=== PATIENT | male | born 1955 | race Caucasian/White ===

== ENCOUNTER 2023-05-16 12:50 | Emergency (ER) | payer OTHER, SELFPAY ==
[2023-05-16 12:55] VITALS: BP 141/90
[2023-05-16 13:14] LABS: % Basophils 0.4 % (0-2); % Eosinophils 0.7 % (0-6); % Immature Granulocytes 0.7 % (0-0.5); % Lymphocytes 6.9 % (20.5-51.1); % Monocytes 9.5 % (1.7-9.3); % Neutrophils 81.8 % (42.2-75.2); Absolute Lymphocytes 0.2 10^3/uL (1.2-3.4); Absolute Monocytes 0.3 10^3/uL (0.1-0.6); Absolute Neutrophils 2.3 10^3/uL (1.4-6.5); Hematocrit 34.6 % (39.0-52.0); Hemoglobin 12.2 g/dL (13.0-18.0); Mean Corp Hgb Conc. 35.3 g/dL (33.0-37.0); Mean Corpuscular Volume 90.8 fL (80.0-94.0); Mean Platelet Volume 8.2 fL (7.4-10.4); Nucleated Red Blood Cells % 0 % (-); Platelet Count 111 10^3/uL (130-400); Red Blood Cell Count 3.81 10^6/uL (4.70-6.10); Red Cell Dist. Width 12.8 % (11.5-14.5); White Blood Cell Count 2.8 10^3/uL (4.8-10.8)
[2023-05-16 13:23] LABS: INR 1.14; PT 14.4 Sec (11.4-14.6)
[2023-05-16 13:31] LABS: ALT (SGPT) < 10 U/L (0-50); AST (SGOT) 20 U/L (17-59); Albumin 3.7 g/dl (3.5-5.0); Alkaline Phosphatase 48 U/L (38-126); Blood Urea Nitrogen 26 mg/dl (9-20); Carbon Dioxide 28 mmol/L (22-30); Chloride 94 mmol/L (98-107); Glucose 119 mg/dl (70-99); Potassium 4.3 mmol/L (3.5-5.1); Sodium 127 mmol/L (135-145); Total Bilirubin 1.6 mg/dl (0.2-1.3); Total Protein 6.4 g/dl (6.3-8.2); Uric Acid 6.7 mg/dl (3.5-8.5); eGFR 54.75
--- NOTE | 2023-05-16 14:16 | ED.GENMED ---
History of Present Illness
<Prisca Brunson PA-C - Last Filed: 05/17/23 13:19>
General
Chief Complaint: Musculo-Skeletal Complaint
Source: patient
Exam Limitations: none
Time Seen by Provider: 05/16/23 14:00
Nursing documentation reviewed up to this point in time: agreed with
Travel History
Have you had any contact with someone who has COVID-19?: No
Do you have any symptoms of coronavirus? Fever > 100 degrees, chills, cough, shortness of breath, sore throat, loss of taste or smell, muscle aches, or headache?: No
History of Present Illness
History of Present Illness:
Patient is a 68-year-old male currently undergoing treatment for throat cancer presenting for evaluation of atraumatic right ankle pain and swelling. Patient initially noticed symptoms on Wednesday morning with some pain that gradually worsened
throughout the day. Starting yesterday he noticed worsening pain, swelling, redness of right ankle. He states the pain is very severe and he is essentially unable to bear weight. He denies any trauma, recent surgery, open wounds. He denies any
fever, chest pain, shortness of breath.
Of note�patient did have a very similar episode last week on 05/10/23 in the same ankle. He reports that this is 'exactly the same 'he was seen at his cancer center where they performed an ultrasound and x-ray of right foot without any abnormal
findings. They treated him with 3 days of prednisone 50 mg for suspected gout with very quick improvement in symptoms. Starting on Wednesday he started his scheduled steroid infusion through . He then noticed that the symptoms returned on
Wednesday morning.
Patient denies any history of IV drug use. He is not on any blood thinners.
He will be back in his cancer center this week for routine labwork and treatment
Phy Exam
<Prisca Brunson PA-C - Last Filed: 05/17/23 13:19>
Physical Exam
Physical Exam:
General: Well appearing and non-toxic
Vitals: Mildly hypertensive, otherwise vital signs stable, afebrile
HEENT: protecting airway
Neck: appears supple, no JVD, no meningismus
CV: RRR, heart sounds normal, no evidence of cyanosis
Resp: No evidence of respiratory distress, lungs clear
Abd: Non-distended
Extremities: Significant edema and tenderness of right ankle worse at lateral malleolus, mild warmth noted; DP pulse palpable and equal bilaterally; no evidence of open wound, no red streaking noted
Neuro: alert and oriented x 3; grossly intact
Psych: Normal affect
Skin: Intact, erythema and edema of right ankle as described above
Course
<Prisca Brunson PA-C - Last Filed: 05/17/23 13:19>
Orders/Labs/Results
Orders:
Orders
05/16/23 12:58
CR Ankle - Right Min 3 Views * Urgent
Comment:
Reason For Exam: pain/swelling/redness
Foot, Right 3 View [CR Foot - Right Min 3 Views] Urgent
Comment:
Reason For Exam: pain/swelling/redness
05/16/23 13:03
C-Reactive Protein Urgent
Comment: add-on
CMP [Comprehensive Metabolic Panel] Urgent
Complete Blood Count/With Diff Urgent
Erythrocyte Sed Rate Urgent
Comment: add-on
Prothrombin Time Urgent
Uric Acid Urgent
05/16/23 14:25
Add On- LAB Urgent
Tests Added?: ESR, CRP
05/16/23 14:33
0.9% Sodium Chloride 1000 ml [Nss] 1,000 ml IV BOLUS
05/16/23 14:47
Prednisone [Deltasone] 50 mg PO NOW STA
Abnormal Lab Results
05/16/23
13:03
WBC 2.8 L 10^3/uL
(4.8-10.8)
RBC 3.81 L 10^6/uL
(4.70-6.10)
Hgb 12.2 L g/dL
(13.0-18.0)
Hct 34.6 L %
(39.0-52.0)
MCH 32.0 H pg
(27.0-31.0)
Plt Count 111 L 10^3/uL
(130-400)
Absolute Lymphs (auto) 0.2 L 10^3/uL
(1.2-3.4)
Immature Gran % 0.7 H %
(0-0.5)
Neutrophils % 81.8 H %
(42.2-75.2)
Lymphocytes % 6.9 L %
(20.5-51.1)
Monocytes % 9.5 H %
(1.7-9.3)
ESR 27 H mm/hour
(0-20)
Sodium 127 L mmol/L
(135-145)
Chloride 94 L mmol/L
(98-107)
BUN 26 H mg/dl
(9-20)
Creatinine 1.4 H mg/dL
(0.7-1.3)
Glucose 119 H mg/dl
(70-99)
Total Bilirubin 1.6 H mg/dl
(0.2-1.3)
C-Reactive Protein 28.10 H mg/L
(0.0-10.00)
05/16/23 13:03
05/16/23 13:03
Vital Signs
Initial and Last Documented VS:
Initial Vital Signs
Temp Pulse Resp BP Pulse Ox
98.3 F 68 17 141/90 99
05/16/23 12:55 05/16/23 12:55 05/16/23 12:55 05/16/23 12:55 05/16/23 12:55
Last Documented Vital Signs
Temp Pulse Resp BP Pulse Ox
98.3 F 73 17 140/95 97
05/16/23 12:55 05/16/23 17:18 05/16/23 12:55 05/16/23 17:18 05/16/23 17:18
<Veronica Deshpande MD - Last Filed: 05/16/23 15:03>
Orders/Labs/Results
Orders:
Orders
05/16/23 12:58
CR Ankle - Right Min 3 Views * Urgent
Comment:
Reason For Exam: pain/swelling/redness
Foot, Right 3 View [CR Foot - Right Min 3 Views] Urgent
Comment:
Reason For Exam: pain/swelling/redness
05/16/23 13:03
C-Reactive Protein Urgent
Comment: add-on
CMP [Comprehensive Metabolic Panel] Urgent
Complete Blood Count/With Diff Urgent
Erythrocyte Sed Rate Urgent
Comment: add-on
Prothrombin Time Urgent
Uric Acid Urgent
05/16/23 14:25
Add On- LAB Urgent
Tests Added?: ESR, CRP
05/16/23 14:33
0.9% Sodium Chloride 1000 ml [Nss] 1,000 ml IV BOLUS
05/16/23 14:47
Prednisone [Deltasone] 50 mg PO NOW STA
Abnormal Lab Results
05/16/23
13:03
WBC 2.8 L 10^3/uL
(4.8-10.8)
RBC 3.81 L 10^6/uL
(4.70-6.10)
Hgb 12.2 L g/dL
(13.0-18.0)
Hct 34.6 L %
(39.0-52.0)
MCH 32.0 H pg
(27.0-31.0)
Plt Count 111 L 10^3/uL
(130-400)
Absolute Lymphs (auto) 0.2 L 10^3/uL
(1.2-3.4)
Immature Gran % 0.7 H %
(0-0.5)
Neutrophils % 81.8 H %
(42.2-75.2)
Lymphocytes % 6.9 L %
(20.5-51.1)
Monocytes % 9.5 H %
(1.7-9.3)
ESR 27 H mm/hour
(0-20)
Sodium 127 L mmol/L
(135-145)
Chloride 94 L mmol/L
(98-107)
BUN 26 H mg/dl
(9-20)
Creatinine 1.4 H mg/dL
(0.7-1.3)
Glucose 119 H mg/dl
(70-99)
Total Bilirubin 1.6 H mg/dl
(0.2-1.3)
C-Reactive Protein 28.10 H mg/L
(0.0-10.00)
05/16/23 13:03
05/16/23 13:03
Vital Signs
Initial and Last Documented VS:
Initial Vital Signs
Temp Pulse Resp BP Pulse Ox
98.3 F 68 17 141/90 99
05/16/23 12:55 05/16/23 12:55 05/16/23 12:55 05/16/23 12:55 05/16/23 12:55
Last Documented Vital Signs
Temp Pulse Resp BP Pulse Ox
98.3 F 73 17 140/95 97
05/16/23 12:55 05/16/23 17:18 05/16/23 12:55 05/16/23 17:18 05/16/23 17:18
<Prisca Brunson PA-C - Last Filed: 05/17/23 13:19>
MDM/Problems Addressed
Differential Diagnosis Includes:
gouty arthritis, pseudogout, septic arthritis, sprain, fracture, doubt DVT
MDM/Problems Addressed:
Patient is a 68 year old male currently undergoing treatment for throat cancer presenting for evaluation of acute onset atraumatic pain and swelling of right ankle. No fever or chills. No recent wound on right lower leg or infections. Patient with
same symptoms in ankle last wednesday which was treated with steroids for suspected gout with very quick improvement. Physical exam as documented above. Patient is in no apparent distress, he is afebrile. Labs significant for leukopenia of 2.8 which
reflects a mild decline from lab work performed about one week ago. CMP shows evidence of mild renal insufficiency with hyponatremia of 127- patient is asymptomatic at this time. Will give IVF. ESR and CRP are elevated which would be expected in an
inflammatory or infectious process.
Given that patient is very immunocompromised due to cancer treatment with current white count of 2.8-there is significant concern for introducing bacteria into sterile joint space. Discussed at length with patient and patient's family. Only way to
competently rule out septic joint is with fluid analysis. They report that this is exact same symptoms that were present last week that immediately resolved with steroids which would further point to inflammatory/gout process over septic joint.
Patients does report that his uric acid level was found to be elevated at that time. And although not diagnostic- does further point to gout/inflammatory process. Given that patient is afebrile with history of recent previous flare- will plan
to treat with steroids with very strict return precautions. They will be seeing their oncologist tomorrow and will make sure that symptoms are improving.
Patient and patients feel comfortable with discarge with current plan. They will have labs checked in a few days, as scheduled, and ensure sodium levels have increased.
Chronic conditions affecting care:
Throat cancer currently undergoing treatment, history of gout
Acute Exacerbation and/or Progression of Chronic Illness:
N/A
<Prisca Brunson PA-C - Last Filed: 05/17/23 13:19>
*Radiology
Radiology exam reviewed: preliminary read by ED provider and radiology read reviewed
*Pulse Oximetry
Patient hypoxic: no
*EKG
Interpreted by ED Provider?: NA
*Extra Gang Supervisor Interpretation
Rate: Extra Gang Supervisor- N/A
*Critical Care Note
Total Time (30-74mins, 75-104mins- exclusive of procedures): Not Applicable
Data Reviewed
Review of Other/Old Records Reveals: Labs and Records
Source: patient
Further Testing Considered But Not Given:
Seriously considered arthrocentesis of right ankle for fluid analysis to rule out septic joint.
ED Attending Note
<Prisca Brunson PA-C - Last Filed: 05/17/23 13:19>
-
Portions of this chart may have been created with voice recognition software.� Occasional wrong word or��sound alike� substitutions may have occurred due to the inherent limitations of voice recognition software.
<Veronica Deshpande MD - Last Filed: 05/16/23 15:03>
ED Attending Note
Patient seen and examined by attending physician: Yes
I performed the substantive portion of visit, reviewed & personally made and approve the management plan that is documented in note by myself or BECKY.: Yes
ED Attending Note:
68 yr old male with c/o R lateral ankle swelling redness warmth since Wednesday. Difficult to walk due to pain. No f/c/sweats/trauma/drainage/numbness. Had 'same' exact sxs last week, presumptively diagnosed with gout, started on 50 mg of
prednisone x 3 days. Upon starting that medication patient had immediate relief of symptoms. After the oral prednisone he was on IV steroids as part of his cancer treatment. This was discontinued on and patient symptoms began again on
Wednesday. He was referred to the emergency department for further evaluation. On exam, lateral aspect of right ankle is noted to be tender to palpation, edematous, erythematous, and warm. There is no drainage or fluctuance, no break in skin. He
does have decreased range of motion due to pain. Differentiation of inflammatory arthritis such as gout versus infectious arthritis somewhat related to history and physical exam, although arthrocentesis potentially helpful. However, this poses
risk given that patient is immunocompromised, and joint is also sometimes difficult to access to obtain fluid. In addition, based on history, and the fact that same exact symptoms resolved with steroid which would be consistent with an inflammatory
and not infectious etiology, we could presumptively treat him again with steroids with very very close observation. Weighing the risk and benefits and in discussion with patient and his , we opted to give prednisone. He is going to see his
doctors in the morning. He understands that we have not yet been able to fully exclude infectious etiology although is considered far less likely than inflammatory, and importance of this close follow-up and observation.
Discharge Plan
Departure
Patient Disposition: Home (Routine Discharge)
Date of Disposition: 05/16/23
Time of Disposition: 16:53
Patient with high blood pressure during this ER visit?: Yes
Condition: Good
Covid-19: Not Applicable
Discharge Problem:
Swelling of ankle joint, right
Instructions: Septic arthritis, Gout (DC), BLOOD PRESSURE
Prescriptions:
New
prednisone 50 mg tablet
50 mg PO DAILY Qty: 5 0RF
No Action
sennosides [senna] 8.6 mg Tablet
25.8 mg PO DAILY
clomiphene citrate [Clomid] 50 mg Tablet
50 mg PO Q48H
amlodipine 5 mg Tablet
5 mg PO DAILY
lisinopril 10 mg Tablet
10 mg PO DAILY
docusate sodium [Colace] 100 mg Capsule
200 mg PO DAILY
atenolol 50 mg Tablet
50 mg PO DAILY
rosuvastatin 20 mg Tablet
20 mg PO DAILY
fentanyl 12 mcg/hr Patch 72 Hour
1 patch TRANSDERMAL Q72H
oxycodone 10 mg Tablet
10 mg PO Q6H
cholecalciferol (vitamin D3) [Vitamin D3] 50 mcg (2,000 unit) Tablet
50 mcg PO DAILY
Activity Restrictions/Additional Instructions:
-Return to the emergency department with any high fevers, severe pain, worsening in swelling/redness/warmth, intractable vomiting, worsening in current symptoms, or any other concerns
-As discussed- your sodium level was found to be low in the emergency department today. We did give you some fluids and replete this. It is important to have your labs rechecked in the next few days to ensure this number is trending up. If you
develop any dizziness, instability of feet, confusion, alterations in mental status, signs of severe dehydration�you should return to the emergency department
-The prescription has been sent to the pharmacy. You should take this once a day for the next 5 days.
-Follow-up with your oncologist tomorrow to ensure symptoms are improving.
Interventions
Interventions:
*Risk Screen - Suicide Last Done: 05/16/23 12:58
*General Assessment Last Done: 05/16/23 12:58
*Neglect/Abuse Screening Last Done: 05/16/23 12:58
ED- Fall Risk Assessment Last Done: 05/16/23 17:18
*ED COVID-19 Vaccine History Last Done: 05/16/23 12:57
*Nursing Disposition Last Done: 05/16/23 17:18
ED-Musculoskeletal Assessment Last Done: 05/16/23 14:00
Discharge Date and Time
Discharge Date/Time: 05/16/23 17:10
[2023-05-16 14:49] LABS: Erythrocyte Sed Rate 27 mm/hour (0-20)
[2023-05-16] MEDS: DELTASONE 50 MG PO (15:13)
[2023-05-16] MEDS: NSS 1000 IV (15:14)
[2023-05-16 15:17] VITALS: BP 149/91
[2023-05-16 17:08] VITALS: BP 140/95
[2023-05-16 17:18] VITALS: BP 140/95
== END 2023-05-16 17:10 | disposition home or self-care (01) ==
LOC: EMR 12:50
PROVIDERS: EMERGENCY PHYSICIAN Emergency Medicine
DX: M25.471 Effusion, right ankle (principal); C14.0 Malignant neoplasm of pharynx, unspecified; D84.821 Immunodeficiency due to drugs; I10 Essential (primary) hypertension; E78.5 Hyperlipidemia, unspecified; Z96.643 Presence of artificial hip joint, bilateral
CPT/HCPCS: 99284; 96360; 73610; 73630; 80053; 84550; 85025; 85610; 85652; 86140

== ENCOUNTER 2023-05-23 18:25 | Emergency (ER) | payer OTHER, SELFPAY ==
[2023-05-23 18:35] VITALS: BP 116/82
[2023-05-23 19:21] LABS: Urine Albumin Trace (Neg - Trace); Urine Bilirubin Negative (Negative); Urine Character Clear (Clear); Urine Color Yellow; Urine Glucose Negative (Negative); Urine Ketone Negative (Negative); Urine Leukocyte Negative (Negative); Urine Nitrite Negative (Negative); Urine Occult Blood Negative (Negative); Urine Urobilinogen Negative (Neg - 1+)
[2023-05-23 19:33] LABS: COVID-19 Antigen Negative (Negative)
[2023-05-23 19:41] VITALS: BMI 28.4
[2023-05-23 20:07] LABS: % Immature Granulocytes 0.6 % (0-0.5); % Lymphocytes 8.9 % (20.5-51.1); % Monocytes 11.7 % (1.7-9.3); % Neutrophils 78.8 % (42.2-75.2); Absolute Lymphocytes 0.3 10^3/uL (1.2-3.4); Absolute Monocytes 0.4 10^3/uL (0.1-0.6); Absolute Neutrophils 2.5 10^3/uL (1.4-6.5); Hemoglobin 11.5 g/dL (13.0-18.0); Mean Corp Hgb Conc. 34.8 g/dL (33.0-37.0); Mean Corpuscular Hgb 32.4 pg (27.0-31.0); Nucleated Red Blood Cells % 0 % (-); Red Blood Cell Count 3.55 10^6/uL (4.70-6.10); Red Cell Dist. Width 13.2 % (11.5-14.5); White Blood Cell Count 3.2 10^3/uL (4.8-10.8)
[2023-05-23 20:19] LABS: Mean Platelet Volume 8.6 fL (7.4-10.4); Platelet Count 73 10^3/uL (130-400)
[2023-05-23 20:21] LABS: Lactic Acid 0.6 mmol/L (0.7-2.0)
--- NOTE | 2023-05-23 20:21 | ED.GENMED ---
Addendum entered and electronically signed by Alvarado Cornelius PA-C 05/24/23 18:44:
May 23 6:45 PM. Spoke with the patient's regarding positive blood cultures. Recommended they return promptly for further treatment. Patient is concerned about receiving his radiation. There talking it over with his oncologist. The blood
culture results were given to the patient over the phone. They are aware of the urgency for return
Addendum entered and electronically signed by Alvarado Cornelius PA-C 05/24/23 18:36:
May 24, 2023 6:36 PM: Was handed a positive blood culture result at this time. This demonstrates gram-negative bacilli from the patient's recent visit yesterday. Attempted to call all numbers listed on chart to relay this information and
recommend patient return to the hospital however there was no answer at any of the phone numbers. Left message on all of them to call back.
Original Note:
History of Present Illness
General
Chief Complaint: Fever
Source: patient and family
Exam Limitations: none
Time Seen by Provider: 05/23/23 19:38
Nursing documentation reviewed up to this point in time: agreed with
Travel History
Have you had any contact with someone who has COVID-19?: No
Do you have any symptoms of coronavirus? Fever > 100 degrees, chills, cough, shortness of breath, sore throat, loss of taste or smell, muscle aches, or headache?: No
History of Present Illness
History of Present Illness:
68-year-old male history of throat cancer radiation and chemo through outpatient center in [facility] scheduled for radiation tomorrow talk to the triage nurse who sent her in [facility] for blood work, just finished a course of steroids
for gout no antipyretics earlier mild nausea mild headache temperature about 101.8-102 home, no vomiting no abdominal pain no diarrhea mild sore throat but he relates this to the radiation
Past History
Past History
ED Past Medical History: Cancer
Social History
Tobacco: Non-smoker
Alcohol: None
Drug: None
Personal:
Living: with family
Review of Systems
Review of Systems
All Other Systems: Not applicable
Constitutional: Reports fever, fatigue and chills
EENT: Reports mouth pain; Denies mouth swelling
Respiratory: Reports no symptoms
ABD/GI: Reports nausea
: Reports no symptoms
Musculoskeletal: Reports no symptoms
Skin: Reports no symptoms
Neurological: Reports headache
Phy Exam
Physical Exam
Physical Exam:
Physical Exam
General: no apparent distress, not acutely ill low-grade fever
Neck: Posterior pharynx is clear, postradiation changes to anterior chest
Heart: Tachycardia
Lungs: no acute respiratory distress. clear bilaterally
Abdomen: Nontender
Neuro: alert and oriented. no focal neurological deficits
Skin: no rash
Psychiatric: well kept. interactive and cooperative
Extremities: no edema. no calf tenderness.
Course
Orders/Labs/Results
Orders:
Orders
05/23/23 19:02
COVID-19 Antigen Urgent
Source: Nasal Swab
Influenza A+B Rapid Molecular Urgent
RASHAD Source: Nasal Swab
Specimen Description:
05/23/23 19:10
Urinalysis Reflex To Culture Urgent
Date Specimen was Collected: 05/23/23
Time Specimen was Collected: 19:06
05/23/23 19:53
Complete Blood Count/With Diff Urgent
Comprehensive Metabolic Panel Urgent
Lactic Acid Q4H
Comment: CANCEL 2nd LACTIC ACID IF 1st LACTIC ACID IS LESS THAN 2
Blood Culture Q30M
RASHAD Source: Blood/Venous
Specimen Description:
Blood Culture Q30M
RASHAD Source: Blood/Venous
Specimen Description:
05/23/23 20:19
0.9% Sodium Chloride 1000 ml [Nss] 1,000 ml IV BOLUS
Acetaminophen [Tylenol] 1,000 mg PO NOW STA
05/23/23 21:04
CR Chest - 2 Views Urgent
Comment:
Reason For Exam: fever
05/23/23 23:45
Lactic Acid Q4H
Comment: CANCEL 2nd LACTIC ACID IF 1st LACTIC ACID IS LESS THAN 2
Abnormal Lab Results
05/23/23
19:53
WBC 3.2 L 10^3/uL
(4.8-10.8)
RBC 3.55 L 10^6/uL
(4.70-6.10)
Hgb 11.5 L g/dL
(13.0-18.0)
Hct 33.0 L %
(39.0-52.0)
MCH 32.4 H pg
(27.0-31.0)
Plt Count 73 L 10^3/uL
(130-400)
Absolute Lymphs (auto) 0.3 L 10^3/uL
(1.2-3.4)
Immature Gran % 0.6 H %
(0-0.5)
Neutrophils % 78.8 H %
(42.2-75.2)
Lymphocytes % 8.9 L %
(20.5-51.1)
Monocytes % 11.7 H %
(1.7-9.3)
Sodium 126 L mmol/L
(135-145)
Chloride 94 L mmol/L
(98-107)
BUN 24 H mg/dl
(9-20)
Glucose 119 H mg/dl
(70-99)
Lactic Acid 0.6 L mmol/L
(0.7-2.0)
05/23/23 19:53
05/23/23 19:53
Vital Signs
Initial and Last Documented VS:
Initial Vital Signs
Temp Pulse Resp BP Pulse Ox
99.9 F 82 18 116/82 95
05/23/23 18:35 05/23/23 18:35 05/23/23 18:35 05/23/23 18:35 05/23/23 18:35
Last Documented Vital Signs
Temp Pulse Resp BP Pulse Ox
101.7 F H 73 15 130/88 94
05/23/23 18:41 05/23/23 21:15 05/23/23 21:15 05/23/23 21:00 05/23/23 21:15
*Critical Care Note
Total Time (30-74mins, 75-104mins- exclusive of procedures): Not Applicable
Update Note
Update Note:
10 PM chest x-ray report noted labs are noted blood cultures are pending viral swabs are noted patient is anxious to be discharged to follow-up for radiation tomorrow given copy of his labs and x-ray reports,
ED Attending Note
-
Portions of this chart may have been created with voice recognition software.� Occasional wrong word or��sound alike� substitutions may have occurred due to the inherent limitations of voice recognition software.
Discharge Plan
Departure
Patient Disposition: Home (Routine Discharge)
Date of Disposition: 05/23/23
Time of Disposition: 21:54
Patient with high blood pressure during this ER visit?: No
Condition: Good
Covid-19: Negative COVID-19
Discharge Problem:
Fever
Instructions: Fever, Adult (DC)
Prescriptions:
No Action
sennosides [senna] 8.6 mg Tablet
25.8 mg PO DAILY
clomiphene citrate [Clomid] 50 mg Tablet
50 mg PO Q48H
amlodipine 5 mg Tablet
5 mg PO DAILY
lisinopril 10 mg Tablet
10 mg PO DAILY
docusate sodium [Colace] 100 mg Capsule
200 mg PO DAILY
atenolol 50 mg Tablet
50 mg PO DAILY
rosuvastatin 20 mg Tablet
20 mg PO DAILY
fentanyl 12 mcg/hr Patch 72 Hour
1 patch TRANSDERMAL Q72H
oxycodone 10 mg Tablet
10 mg PO Q6H
cholecalciferol (vitamin D3) [Vitamin D3] 50 mcg (2,000 unit) Tablet
50 mcg PO DAILY
prednisone 50 mg tablet
50 mg PO DAILY Qty: 5 0RF
Referrals:
Seamus Osei MD [Family Provider] - Next open appointment
Activity Restrictions/Additional Instructions:
Rest and plenty of fluids, Tylenol every 4-6 hours for fever follow-up with your specialist at [facility] tomorrow as scheduled
Interventions
Interventions:
*Risk Screen - Suicide Last Done: 05/23/23 19:41
*General Assessment Last Done: 05/23/23 19:41
*Neglect/Abuse Screening Last Done: 05/23/23 19:41
*ED COVID-19 Vaccine History Last Done: 05/23/23 19:41
ED- Neurological Assessment Last Done: 05/23/23 19:58
ED-Skin Assessment Last Done: 05/23/23 19:58
Discharge Date and Time
Print Language: CUBAN
[2023-05-23 20:30] LABS: ALT (SGPT) 11 U/L (0-50); AST (SGOT) 24 U/L (17-59); Albumin 3.5 g/dl (3.5-5.0); Alkaline Phosphatase 54 U/L (38-126); Blood Urea Nitrogen 24 mg/dl (9-20); Calcium 8.8 mg/dl (8.4-10.2); Carbon Dioxide 27 mmol/L (22-30); Chloride 94 mmol/L (98-107); Estimated Creatinine Clearance 60 ml/min; Glucose 119 mg/dl (70-99); Potassium 4.3 mmol/L (3.5-5.1); Sodium 126 mmol/L (135-145); Total Bilirubin 1.2 mg/dl (0.2-1.3); Total Protein 6.3 g/dl (6.3-8.2); eGFR 59.84
[2023-05-23] MEDS: TYLENOL 1000 MG PO (20:32)
[2023-05-23] MEDS: NSS 1000 IV (20:38)
[2023-05-23 20:52] VITALS: BP 132/90
[2023-05-23 21:00] VITALS: BP 130/88
[2023-05-23 22:00] VITALS: BP 135/80
== END 2023-05-23 22:32 | disposition home or self-care (01) ==
LOC: EMR 18:25
PROVIDERS: Emergency Medicine; EMERGENCY PHYSICIAN Emergency Medicine; FAMILY PHYSICIAN Internal Medicine
DX: R50.9 Fever, unspecified (principal); R51.9 Headache, unspecified; R11.0 Nausea; C14.0 Malignant neoplasm of pharynx, unspecified; J02.9 Acute pharyngitis, unspecified; R53.83 Other fatigue; Z11.52 Encounter for screening for COVID-19
CPT/HCPCS: 99284; 71046; 80053; 81003; 83605; 85025; 87040; 87077; 87205; 87502; 87811

== ENCOUNTER 2023-05-24 21:36 | Inpatient (IN) | payer OTHER, SELFPAY ==
[2023-05-24 20:00] VITALS: BP 109/59
--- NOTE | 2023-05-24 20:09 | ED.GENMED ---
History of Present Illness
General
Chief Complaint: Abnormal Lab Value
Source: patient and records
Exam Limitations: none
Time Seen by Provider: 05/24/23 20:08
Nursing documentation reviewed up to this point in time: agreed with
Travel History
Have you had any contact with someone who has COVID-19?: No
Do you have any symptoms of coronavirus? Fever > 100 degrees, chills, cough, shortness of breath, sore throat, loss of taste or smell, muscle aches, or headache?: No
History of Present Illness
History of Present Illness:
Patient seen by myself last evening with fever discharged to home cultures were sent called today blood culture growing gram-negative drew he has head and neck cancer under chemoradiation through [facility] in [facility]
Patient was seen here 7 to 10 days ago with right lower extremity pain treated with a course of steroids, 2 nights ago developed fever
Is complaining of some pain and swelling in his left hip and thigh
Has bilateral prostheses reportedly
Patient did follow-up at [facility] today he had fluids, repeat blood work sodium and creatinine improved reportedly
Past History
Past History
ED Past Medical History: Cancer
Social History
Tobacco: Non-smoker
Alcohol: None
Drug: None
Personal:
Living: with family
Review of Systems
Review of Systems
All Other Systems: Not applicable
Constitutional: Reports fever and fatigue
Phy Exam
Physical Exam
Physical Exam:
Physical Exam
General: 68 male low-grade fever
Neck: Postradiation changes to the neck
Heart: Regular
Lungs: no acute respiratory distress
Neuro: alert and oriented. no focal neurological deficits
Skin: no rash
Psychiatric: well kept. interactive and cooperative
Extremities: Mild swelling and bruising lateral upper thigh minimal pain with range of motion
Course
Orders/Labs/Results
Orders:
Orders
05/24/23 20:08
Complete Blood Count/With Diff Urgent
Comprehensive Metabolic Panel Urgent
Urinalysis Urgent
Urine Culture Urgent
RASHAD Source: Urine
Specimen Description:
05/24/23 20:12
Cefepime HCl [Maxipime] 2,000 mg IV NOW STA
05/24/23 20:13
0.9% Sodium Chloride 1000 ml [Nss] 2,000 ml IV BOLUS
Acetaminophen [Tylenol] 1,000 mg PO NOW STA
05/24/23 20:15
Lactic Acid Q4H
Comment: CANCEL 2nd LACTIC ACID IF 1st LACTIC ACID IS LESS THAN 2
Blood Culture Q30M
RASHAD Source: Blood/Venous
Specimen Description:
05/24/23 20:32
Hip, Left 2-3 Views [CR Hip - LT w/wo Pel 2-3 Vw*] Urgent
Comment:
Reason For Exam: pain fever
Include a pelvis x-ray?: No
05/24/23 20:45
Blood Culture Q30M
RASHAD Source: Blood/Venous
Specimen Description:
05/25/23 00:15
Lactic Acid Q4H
Comment: CANCEL 2nd LACTIC ACID IF 1st LACTIC ACID IS LESS THAN 2
Vital Signs
Initial and Last Documented VS:
Initial Vital Signs
Temp Pulse Resp BP Pulse Ox
100.3 F 76 16 109/59 98
05/24/23 20:00 05/24/23 20:00 05/24/23 20:00 05/24/23 20:00 05/24/23 20:00
Last Documented Vital Signs
Temp Pulse Resp BP Pulse Ox
100.3 F 76 16 109/59 98
05/24/23 20:00 05/24/23 20:00 05/24/23 20:00 05/24/23 20:00 05/24/23 20:00
MDM/Problems Addressed
Differential Diagnosis Includes:
Bacteremia perhaps urinary source as biliary source perhaps seeded his prosthetic joint
MDM/Problems Addressed:
Fever bacteremia
Chronic conditions affecting care: Immunosuppressed and Cancer
Acute Exacerbation and/or Progression of Chronic Illness: Immunosuppressed and Cancer
*Pulse Oximetry
Patient hypoxic: no
*Production Or Plant Engineer Interpretation
Rate: normal
Interpretation: normal
Heart Rate: 78
Rhythm: sinus
*Critical Care Note
Total Time (30-74mins, 75-104mins- exclusive of procedures): Not Applicable
Data Reviewed
Review of Other/Old Records Reveals: Labs
Source: patient and records
Update Note
Update Note:
Patient with no bacteremia will check urinalysis urine culture repeat his blood cultures, does have some vague pain in his left hip and thigh he is able to ambulate, tells me�feeling better today than yesterday, will proceed with IV antibiotics, as
he is known to be bacteremic did receive a call from the [facility] patient to get XRT today and IV fluids repeat blood work
ED Attending Note
-
Portions of this chart may have been created with voice recognition software.� Occasional wrong word or��sound alike� substitutions may have occurred due to the inherent limitations of voice recognition software.
Discharge Plan
Departure
Patient Disposition: Admit
Date of Disposition: 05/24/23
Time of Disposition: 20:13
Admit to: Med/Surg
Presentation/result/management discussed w/ accepting MD/DO: Hospitalist
Patient with high blood pressure during this ER visit?: No
Condition: Fair
Covid-19: Not Applicable
Discharge Problem:
Bacteremia
Prescriptions:
No Action
sennosides [senna] 8.6 mg Tablet
25.8 mg PO HS
amlodipine 5 mg Tablet
5 mg PO DAILY
lisinopril 10 mg Tablet
10 mg PO DAILY
docusate sodium [Colace] 100 mg Capsule
200 mg PO HS
atenolol 50 mg Tablet
50 mg PO DAILY
rosuvastatin 20 mg Tablet
20 mg PO QPM
fentanyl 12 mcg/hr Patch 72 Hour
1 patch TRANSDERMAL Q72H
Patient Comments:
05/24/2023: last filled 05/05/23, 10 patches for 30 days from [facility]
cholecalciferol (vitamin D3) [Vitamin D3] 50 mcg (2,000 unit) Tablet
50 mcg PO DAILY
aspirin 81 mg Tablet,Delayed Release (Dr/Ec)
81 mg PO DAILY
oxycodone 5 mg tablet
10 mg PO Q6H
Patient Comments:
05/24/2023: last filled 04/30/23, 120 tabs for 30 days from [facility]
Interventions
Interventions:
*ED COVID-19 Vaccine History Last Done: 05/24/23 20:00
Discharge Date and Time
Print Language: CYMRAES
--- NOTE | 2023-05-24 20:19 | HPS.HSE ---
Addendum entered and electronically signed by Ruperto Calvo MD 05/24/23 21:10:
I saw and examined the patient.
The CHEMIST HELPER or PA's note was reviewed and I agree with the note.
Comment:
SEE UPDATED NOTE
Original Note:
Family Physician
-
Family Physician:
Chief Complaint
-
Left hip pain, fever, Gram negative bacilli cultures 1 bottle
History of Present Illness
68-year-old male who was seen yesterday in the ER 05/23/2023 for fever with negative workup. He was called and to the hospital this evening as one of his blood cultures grew gram-negative bacilli. He is currently under chemoradiation for head and
neck cancer at [facility] and [facility] of which she had last on May 13 and gets every 3 weeks. He was diagnosed in January 2023. He reports he started with left hip pain on Wednesday that has been persistent then developed fever. He
denies any fall or injury although has ecchymosis to the left lateral hip below prior surgical site from left hip replacement. No palpable effusion he does report the pain radiates down to his foot. His reports he went to [facility]
today received some IV fluids and was told his sodium did improve some. ER physician did speak with javier Patel at [facility] to make aware of current inpatient evaluation and treatment. The patient has a [facility] head and neck cancer diagnosis
January 2023 chemoradiation, HTN, HLD, bilateral hip replacement left was 15 years ago, chronic thrombocytopenia
Medical History
Past Medical History
Past Medical History: Reports Other
Additional Past Medical History:
head and neck cancer diagnosis January 2023 chemoradiation present and ongoing at [facility]
Chronic pain on opiates
HTN-multidrug regimen
HLD
Past Surgical History: Reports Other
Additional Past Surgical History:
Port right upper chest wall
Bilateral hip replacements
Umbilical hernia repair
Inguinal hernia repair
Social History
Tobacco: Non-smoker
Alcohol: None
Drug: None
Personal:
Living: With Family
Employment: Retired
Family History
Family History: CAD (Both parents)
Allergies / Home Medications
Allergies reflects when Allergies were last updated in [employer].
Home Medications with original date entered in [employer]
Allergy/Medication List:
Allergies
Allergy/AdvReac Type Severity Reaction Status Date / Time
No Known Allergies Allergy Verified 05/24/23 20:02
Home Medications
amlodipine 5 mg tablet 5 mg PO DAILY 05/16/23
atenolol 50 mg tablet 50 mg PO DAILY 05/16/23
cholecalciferol (vitamin D3) 50 mcg (2,000 unit) tablet (Vitamin D3) 50 mcg PO DAILY 05/16/23
docusate sodium 100 mg capsule (Colace) 200 mg PO HS 05/16/23
fentanyl 12 mcg/hr transdermal patch 1 patch transdermal Q72H 05/16/23
lisinopril 10 mg tablet 10 mg PO DAILY 05/16/23
rosuvastatin 20 mg tablet 20 mg PO QPM 05/16/23
sennosides 8.6 mg tablet (senna) 25.8 mg PO HS 05/16/23
aspirin 81 mg tablet,delayed release 81 mg PO DAILY 05/24/23
oxycodone 5 mg tablet 10 mg PO Q6H 05/24/23
Review of Systems
-
History Source: Patient and Family ( at bedside)
A 12 point ROS was completed and negative except as noted: Yes
Constitutional: Reports Fever
EENT: Denies Sore Throat or Runny Nose
Respiratory: Denies Cough or Trouble Breathing
Cardiac: Denies Chest Pain, Diaphoresis, Palpitations or Syncope
Abdomen/GI: Denies Abdominal Pain, Nausea, Vomiting, Diarrhea, Constipated or Bloody Stools
: Denies Dysuria, Frequency, Flank Pain, Incontinence, Difficulty Voiding or Urgency
Musculoskeletal: Reports Joint Pain (Left hip lateral aspect with surrounding ecchymosis no known injury or fall); Denies Joint Swelling or Edema
Skin: Denies Itching or Rash
Neurological: Denies Dizzy, Headache or Weakness
Endocrine: Reports No Symptoms
Hematologic/Lymphatic: Reports No Symptoms
Psych: Reports Calm
Physical Exam
Vital Signs
Vital Signs
Temp Pulse Resp BP Pulse Ox
100.3 F 76 16 109/59 98
05/24/23 20:00 05/24/23 20:00 05/24/23 20:00 05/24/23 20:00 05/24/23 20:00
Physical Exam
General: Conversant, Pain and Fever; No Chills
HEENT: NormoCephalic, Anicteric, Moist mucous membranes and PERRLA
Respiratory: Clear; No Wheezes, Rales or Rhonchi
Cardiac: S1/S2 and Regular Rhythm; No Murmur, Rub, Gallop or Peripheral Edema
Breast: Deferred by me
GI: Soft, Non Tender, Non Distended, Normal Bowel Sounds and No Hepatosplenomegaly
Rectal: Deferred by Provider
Genito-urinary: Deferred by me
Musculoskeletal: No Clubbing, No Cyanosis, No Edema and Other (Left hip pain posterior to greater trochanter with ecchymosis and tenderness present no palpable effusion no erythema)
Skin: Warm and Dry; No Rash
Neuro: AO x 3, No Motor Deficits, Nonfocal/grossly intact and Cranial Nerves Intact; No Slurred Speech, Facial Droop or Tremors
Psych: Calm
Impression/Plan
-
Impression/plan:
Admit to telemetry
#Severe Neutropenia
#Bacteremia with gram-negative bacilli immunocompromised on chemo
WBC 3.2,(abs. N 2.5) ANC =0.8
109/59, 100.3 F(was 101.7F last evening)
Flu/COVID swab , u/a negative yesterday 05/23/2023
-Repeat blood cultures x 2 is only 1 was + for gram-negative bacilli, check lactic acid, repeat UA
-Obtain 1 blood culture from patient's port
-Consult ID
-Consult ONC
-IV vancomycin
#Left hip pain with known left hip prosthesis 15 years ago
-Check left hip x-ray
-Ultrasound left hip
#Head and neck cancer on current chemoradiation
Follows with [facility] and [facility] [phone],
-Chemo every 3 weeks last chemo May 13
#Chronic pain on chronic opiates
-Continue fentanyl patch every 72 hours, oxycodone 10 mg every 6 hours
# Chronic hyponatremia
NA 126 on 05/23/2023, received 1 L of fluid at [facility] today with repeat sodium he reports improved unsure of level
labs pending today
#Chronic thrombocytopenia likely secondary to chemotherapy
PLT 75
#HTN�benign multidrug regimen
Hold lisinopril 10 mg daily, amlodipine 5 mg daily, atenolol 50 mg daily as blood pressure is soft 109/59
#HLD
-Continue rosuvastatin 20 mg every afternoon
DVT prophylaxis
SCDs
Full code
[2023-05-24 20:55] VITALS: BMI 29.4
[2023-05-24 21:00] VITALS: BP 103/66
--- NOTE | 2023-05-24 21:10 | W.PN.UPDATE ---
Update Note
Progress Note Update
This note serves as an addendum to the H&P by complex case manager Tamara WETZEL on 05/25/23
HPI
68M HX H& N Ca in 02/13 s/p XRT and chemo and last Chemo 05/13/24 at [facility]
PORT at Lt Chest wall called in tto ER due to POS GNR BCx sent form 05/24/23, Today return to ER with Lt hip pain yesterday for Fever ( 101.7) ER w/u for souce of infection
05/16/23 @ ER: right lower extremity pain treated with a course of steroidsI also report some pain and swelling in his left hip and thigh. HX B/L THR 15 yrs ago seen at ER
05/23/23: seen at ER for onset of fever: NEG CXR. NEG Covid. NEG Flu, NEG UA .LA 0.6. BCx was sent on 05/24/23.
ROS
No Resp Sxs
No urinary Sxs
No GI sx
No Port tenderness
Today: 1/2 BCX POS GNR within 24hrs
VS: T 101.9 HR 76 BP 109/59 RR 16 (8% RA
LE:
Not toxic looking
Mild swelling and bruising lateral upper thigh
minimal pain with range of motion to Lt leg external rotation
No port tenderness
Data on 05/24/23
on 05/23/23 : Severely neutropenic WCC 3.2
Plt 73 with ANC 80 Plt 75
Na 126 Cr 1.3
05/25/23 BCx sent from Port and peripheral
ASSESSMENT & PLAN
GNR bacteremia unclear source : Rt Prosthetic hip
Severe neutropenia ANC 80 ?
Rt Hip pain
- XR Rt Hip
- Non vascular US of Rt Hip
- Repeat BCx
- Empiric IV vanco and CFP
- ID consult
- Onco consult
Hyponatremia s/p 1 L NS at [facility]
? SIAD
- trend Na in AM
DVT Px: SCD
Code: Full code
IP TLM
[2023-05-24 21:44] LABS: % Immature Granulocytes 0.6 % (0-0.5); % Lymphocytes 8.7 % (20.5-51.1); % Monocytes 13.5 % (1.7-9.3); % Neutrophils 77.2 % (42.2-75.2); Absolute Lymphocytes 0.3 10^3/uL (1.2-3.4); Absolute Monocytes 0.4 10^3/uL (0.1-0.6); Absolute Neutrophils 2.4 10^3/uL (1.4-6.5); Hematocrit 26.9 % (39.0-52.0); Hemoglobin 9.7 g/dL (13.0-18.0); Mean Corp Hgb Conc. 36.1 g/dL (33.0-37.0); Mean Corpuscular Hgb 32.8 pg (27.0-31.0); Mean Corpuscular Volume 90.9 fL (80.0-94.0); Mean Platelet Volume 9.2 fL (7.4-10.4); Nucleated Red Blood Cells % 0 % (-); Platelet Count 66 10^3/uL (130-400); Red Blood Cell Count 2.96 10^6/uL (4.70-6.10); Red Cell Dist. Width 13.3 % (11.5-14.5); White Blood Cell Count 3.1 10^3/uL (4.8-10.8)
[2023-05-24 21:53] LABS: Lactic Acid 0.6 mmol/L (0.7-2.0)
[2023-05-24 21:54] LABS: ALT (SGPT) 13 U/L (0-50); AST (SGOT) 30 U/L (17-59); Alkaline Phosphatase 56 U/L (38-126); Blood Urea Nitrogen 31 mg/dl (9-20); Calcium 8.2 mg/dl (8.4-10.2); Carbon Dioxide 26 mmol/L (22-30); Chloride 97 mmol/L (98-107); Estimated Creatinine Clearance 34 ml/min; Glucose 127 mg/dl (70-99); Potassium 4.5 mmol/L (3.5-5.1); Sodium 126 mmol/L (135-145); Total Protein 5.5 g/dl (6.3-8.2); eGFR 30.17
[2023-05-24 22:00] VITALS: BP 115/64
--- NOTE | 2023-05-24 22:08 | PHA.VAN.IN ---
Assessment
- Assessment
Renal Function: Appears elevated from baseline (05/23/23 BASELINE SCR: 1.3)
Concomitant Antimicrobials: NONE
- Previous Dosing Experience
Previous Regimen: NONE
Plan
- Plan
Initial / Loading Dose: 2GM
Maintenance Regimen: DOSING BY RANDOM LEVELS
Monitoring: RANDOM VANCOMYCIN LEVEL 05/25/23 AM
Pharmacokinetics Vancomycin I
- -
Patient Age: 68
Patient Sex: Male
Vancomycin Day #: 1
Indication: Bacteremia
Requesting Provider: MIHIR
Height / Weight:
Height 6 ft
Actual Weight 98.2 kg
Pertinent Past Medical History: HEAD AND NECK CA/NEUTROPENIA
- Vital Signs / Lab Results
Temp Pulse Resp BP Pulse Ox
100.3 F 68 20 103/66 94
05/24/23 20:00 05/24/23 21:01 05/24/23 21:01 05/24/23 21:00 05/24/23 21:01
Lab Results - Hematology
05/24/23
21:25
WBC 3.1 L
Lab Results - Chemistry
05/24/23
21:25
BUN 31 H
Creatinine 2.3 H
Estimated Creat Clear 34
Albumin 3.0 L
05/24/23
21:25
Lactic Acid 0.6 L
[2023-05-24 22:31] LABS: Urine Albumin Trace (Neg - Trace); Urine Bilirubin Negative (Negative); Urine Character Clear (Clear); Urine Color Yellow; Urine Glucose Negative (Negative); Urine Ketone Trace (Negative); Urine Leukocyte Negative (Negative); Urine Nitrite Negative (Negative); Urine Occult Blood Negative (Negative); Urine Urobilinogen Negative (Neg - 1+)
[2023-05-24] MEDS: NSS 2000 IV (22:48)
[2023-05-24] MEDS: VANCOCIN 540 MG IV (22:51)
[2023-05-24] MEDS: MAXIPIME 2000 MG IV (22:56)
[2023-05-24] MEDS: TYLENOL 1000 MG PO (22:57)
[2023-05-24 23:00] VITALS: BP 110/64
[2023-05-24] MEDS: ROXICODONE 10 MG PO (23:44)
[2023-05-25] VITALS (15 sets, daily range): BP systolic 103–136; BP diastolic 59–80; PULSE 60; BMI 28.9
[2023-05-25] MEDS: COLACE 200 MG PO ×2 (00:19→21:34)
[2023-05-25] MEDS: SENOKOT 25.8000000000000007 MG PO ×2 (00:19→21:34)
[2023-05-25] MEDS: ROXICODONE 10 MG PO ×4 (05:46→23:49)
[2023-05-25 06:02] LABS: % Immature Granulocytes 0.4 % (0-0.5); % Lymphocytes 12.6 % (20.5-51.1); Absolute Lymphocytes 0.4 10^3/uL (1.2-3.4); Absolute Monocytes 0.4 10^3/uL (0.1-0.6); Absolute Neutrophils 2.1 10^3/uL (1.4-6.5); Hematocrit 28.7 % (39.0-52.0); Hemoglobin 9.8 g/dL (13.0-18.0); Mean Corp Hgb Conc. 34.1 g/dL (33.0-37.0); Mean Corpuscular Hgb 32.2 pg (27.0-31.0); Mean Corpuscular Volume 94.4 fL (80.0-94.0); Mean Platelet Volume 9.4 fL (7.4-10.4); Nucleated Red Blood Cells % 0 % (-); Platelet Count 63 10^3/uL (130-400); Red Blood Cell Count 3.04 10^6/uL (4.70-6.10); Red Cell Dist. Width 13.3 % (11.5-14.5); White Blood Cell Count 2.9 10^3/uL (4.8-10.8)
[2023-05-25 06:17] LABS: ALT (SGPT) 35 U/L (0-50); AST (SGOT) 139 U/L (17-59); Albumin 2.8 g/dl (3.5-5.0); Alkaline Phosphatase 73 U/L (38-126); Blood Urea Nitrogen 24 mg/dl (9-20); Calcium 8.1 mg/dl (8.4-10.2); Carbon Dioxide 24 mmol/L (22-30); Chloride 104 mmol/L (98-107); Estimated Creatinine Clearance 49 ml/min; Glucose 96 mg/dl (70-99); Potassium 4.5 mmol/L (3.5-5.1); Sodium 130 mmol/L (135-145); Total Bilirubin 1.2 mg/dl (0.2-1.3); Total Protein 5.3 g/dl (6.3-8.2); eGFR 46.64
[2023-05-25 06:52] LABS: Vancomycin Random 14.2 ug/ml
[2023-05-25] MEDS: TYLENOL 650 MG PO ×3 (07:32→22:20)
[2023-05-25] MEDS: ASPIR LOW (ENTERIC COATED) 81 MG PO (07:32)
[2023-05-25] MEDS: VITAMIN D3 (cholecalciferol) 50 MCG PO (07:34)
[2023-05-25] MEDS: DURAGESIC 12 MCG/HR PATCH 1 PATCH TRANSDERM (07:52)
--- NOTE | 2023-05-25 08:27 | CON.ONC ---
Addendum entered and electronically signed by Syeda Gannon MD 05/25/23 13:17:
68 yo M w/ head/neck cancer, on chemo (carbo/5FU) and radiation through [facility] in [place], admitted with fevers and positive blood cultures. Repeat cultures from port pending, though port has not been red/sore/etc. He's had some hip discomfort,
Xray and US negative. Neck rash and mouth pain from radiation, pain fairly well controlled, able to eat. No diarrhea, cough, chest pain.
Agree w/ IV antibiotics. Await cultures and ID consult
Hopefully port can remain in place
Monitor CBC, cytopenias are as expected w/ chemo
f/u with team at [facility] to resume radiation SHANTAL after discharge
Will sign off, please call with any questions
Original Note:
Impression
Impression
Head and neck cancer with treatment at [facility] with Carboplatin/5FU, last tx 05/13
Thrombocytopenia
Neutropenia on chemotherapy
Low grade fevers
Left hip pain with petechial bruising and swelling
Elevated inflammatory markers
Plan
Plan
Continue neutropenic precautions
4/2 WBC 2.9, Hgb 9.8, PLT 63, ANC 2.1
Monitor CBC w/ diff daily
Transfuse as needed to maintain Hgb >7, PLT >20
Monitor for bleeding
Blood cultures pending
Monitor fevers
Additional blood work has been ordered and pending
Recommend additional imaging of left hip
Request records from [facility] if needed
Supportive care
We will follow.
Patient History
History of Present Illness
Philippe Sanchez is a pleasant independent 68 year old male with history of head and neck cancer treated with chemo-radiation at [facility]. He is under the care of Dr. Valerio (Oncology) and Dr. Miles (Rad Onc). He receives 5FU and Carboplatin Q3 weeks. His last
treatment was 05/13. He denies GCS-F support. Radiation is ongoing. He was diagnosed in January 2023. He was seen in the ER 05/22 for acute fevers and discharged home due to unremarkable workup. Reported T max 101.7. He was called to return to the
hospital last evening as one of his blood cultures was growing gram-negative bacilli. He reports he started with left hip pain on Sunday 05/21 which has been persistent and then he developed a fever. He denies chills/rigors. He describes the left
hip as feeling 'stiff' upon standing. He has noticed a small area of bruising of the left hip as well as swelling. Hx of bilateral hip replacements. He denies falls or traumatic injury. He denies evidence of blood in urine or stool. He reports mild
swelling of right ankle which is chronic for him and he states unchanged.
Past-Medical/Surgical History
Head and neck cancer, chemoradiation at [facility]
Hypertension
Hyperlipidemia
Bilateral hip replacements
Port right upper chest wall
Bilateral hip replacements
Umbilical hernia repair
Inguinal hernia repair
Chronic pain, opioid use
Patient Medication
�Medication �Instructions �Recorded �Confirmed �Last Taken �Type
amlodipine 5 mg tablet 5 mg PO DAILY 05/16/23 05/24/23 05/24/23 History
atenolol 50 mg tablet 50 mg PO DAILY 05/16/23 05/24/23 05/24/23 History
cholecalciferol (vitamin D3) 50 50 mcg PO DAILY 05/16/23 05/24/23 05/24/23 History
mcg (2,000 unit) tablet (Vitamin
D3)
docusate sodium 100 mg capsule 200 mg PO HS 05/16/23 05/24/23 05/23/23 History
(Colace)
fentanyl 12 mcg/hr transdermal 1 patch transdermal Q72H 05/16/23 05/24/23 05/24/23 History
patch
lisinopril 10 mg tablet 10 mg PO DAILY 05/16/23 05/24/23 05/24/23 History
rosuvastatin 20 mg tablet 20 mg PO QPM 05/16/23 05/24/23 05/24/23 History
sennosides 8.6 mg tablet (senna) 25.8 mg PO HS 05/16/23 05/24/23 05/23/23 History
aspirin 81 mg tablet,delayed 81 mg PO DAILY 05/24/23 05/24/23 05/24/23 History
release
oxycodone 5 mg tablet 10 mg PO Q6H 05/24/23 05/24/23 05/24/23 17:30 History
Active Medications
Generic Name Dose Route Start Last Admin
Trade Name Freq PRN Reason Stop Dose Admin
Acetaminophen 650 mg 05/25/23 04:00 05/25/23 07:32
Acetaminophen 325 Mg Tablet PO 06/22/23 03:59 650 mg
Q4HPRN PRN Administration
mild pain/RAE/temp> 100.4F
Aspirin 81 mg 05/25/23 08:00 05/25/23 07:32
Aspirin 81 Mg (Enteric Coated) Tablet PO 06/22/23 07:59 81 mg
DAILY JENNY Administration
Cholecalciferol 50 mcg 05/25/23 08:00 05/25/23 07:34
Cholecalciferol (Vitamin D3) 50 Mcg Tablet (2,000 Units) PO 06/22/23 07:59 50 mcg
DAILY JENNY Administration
Docusate Sodium 200 mg 05/24/23 23:13 05/25/23 00:19
Docusate Sodium 100 Mg Capsule PO 06/21/23 23:12 200 mg
HS JENNY Administration
Fentanyl 1 patch 05/25/23 08:00 05/25/23 07:52
Fentanyl 12 Mcg/Hr Patch TRANSDERM 06/08/23 07:59 1 patch
Q72H JENNY Administration
Vancomycin HCl 1 each/ Device 0 mls @ 0 mls/hr 05/24/23 22:00
IV
PER PROTOCOL JENNY
Protocol
As Directed
Oxycodone HCl 10 mg 05/25/23 00:00 05/25/23 05:46
Oxycodone 10 Mg Regular Release Tablet PO 06/08/23 00:00 10 mg
Q6H JENNY Administration
Patch Removal 0 patch 05/25/23 08:00 05/25/23 07:59
Remove Fentanyl Patch REMOVE 06/08/23 07:59 1 patch
Q72H JENNY Administration
Rosuvastatin Calcium 20 mg 05/25/23 18:00
Rosuvastatin (Crestor) 20 Mg Tablet PO 06/22/23 17:59
QPM JENNY
Sennosides 25.8 mg 05/24/23 23:13 05/25/23 00:19
Sennosides (Senokot) 8.6 Mg Tablet PO 06/21/23 23:12 25.8 mg
HS JENNY Administration
Sodium Chloride 0 flush 05/24/23 23:00
Sodium Chloride 0.9% (Flush) Syringe IV 06/21/23 22:59
PER PROTOCOL JENNY
Review of Systems
-
History Source: Patient, Coordinated Provider and Records
Constitutional: Reports Fever (low grade)
EENT: Reports No Symptoms
Respiratory: Reports No Symptoms
Cardiac: Reports No Symptoms
GI: Reports No Symptoms
Breast: Reports N/A
: Reports No Symptoms
Musculoskeletal: Reports Joint Pain, Joint Swelling, Muscle Pain, Muscle Stiffness and Edema
Skin: Reports No Symptoms
Neuro: Reports No Symptoms
Endocrine: Reports No Symptoms
Hematologic/Lymphatic: Reports No Symptoms
Allergy / Immunology: Reports No Symptoms
Psych: Reports No Symptoms
Physical Exam
-
Patient is sitting up in the chair. PT/OT at bedside. He is eating. Denies acute pain, N/V/D.
General: Well Developed, Well Nourished, No Apparent Distress, Comfortable and Conversant
HEENT: Negative Jaundice
Cardiology: S1 and S2
Pulmonary: Clear and Other (room air)
GI: Soft and Normal Bowel Sounds
Genito-Urinary: Deferred by me
Musculoskeletal: Edema, Right Lower Extrem (right ankle (chronic)), Normal Gait & Station and Other (edema, left hip)
Extremities: Pulses Present and Edema
Neurology: Non Focal
Skin: Warm, Dry and Other (ecchymosis left hip )
Hematologic / Lymphatic: Other (petechial bruising left hip)
Psych: Calm
Labs
Lab Results
WBC 2.9 10^3/uL (4.8-10.8) L 05/25/23 05:48
RBC 3.04 10^6/uL (4.70-6.10) L 05/25/23 05:48
Hgb 9.8 g/dL (13.0-18.0) L 05/25/23 05:48
Hct 28.7 % (39.0-52.0) L 05/25/23 05:48
MCV 94.4 fL (80.0-94.0) H 05/25/23 05:48
MCH 32.2 pg (27.0-31.0) H 05/25/23 05:48
MCHC 34.1 g/dL (33.0-37.0) 05/25/23 05:48
RDW 13.3 % (11.5-14.5) 05/25/23 05:48
Plt Count 63 10^3/uL (130-400) L 05/25/23 05:48
MPV 9.4 fL (7.4-10.4) 05/25/23 05:48
Abs Immat Gran (auto) 0.0 10^3/uL (0-0.05) 05/25/23 05:48
Absolute Neuts (auto) 2.1 10^3/uL (1.4-6.5) 05/25/23 05:48
Absolute Lymphs (auto) 0.4 10^3/uL (1.2-3.4) L 05/25/23 05:48
Absolute Monos (auto) 0.4 10^3/uL (0.1-0.6) 05/25/23 05:48
Absolute Eos (auto) 0.0 10^3/uL (0-0.7) 05/25/23 05:48
Absolute Basos (auto) 0.0 10^3/uL (0-0.2) 05/25/23 05:48
Immature Gran % 0.4 % (0-0.5) 05/25/23 05:48
Neutrophils % 74.0 % (42.2-75.2) 05/25/23 05:48
Lymphocytes % 12.6 % (20.5-51.1) L 05/25/23 05:48
Monocytes % 13.0 % (1.7-9.3) H 05/25/23 05:48
Eosinophils % 0.0 % (0-6) 05/25/23 05:48
Basophils % 0.0 % (0-2) 05/25/23 05:48
Creatinine 1.6 mg/dL (0.7-1.3) H 05/25/23 05:48
Vital Signs
Vital Signs
Temp Pulse Resp BP Pulse Ox
99.9 F 66 16 133/71 95
05/25/23 07:17 05/25/23 07:17 05/25/23 07:17 05/25/23 07:17 05/25/23 07:17
05/24/23 LE US: No sonographic evidence for abscess. If there are persistent clinical symptoms and further imaging evaluation is desired, consideration for MRI evaluation.
05/24/23 Hip Xray: Left hip replacement is present. No radiographic findings to suggest infection or loosening of the prosthesis.
[2023-05-25 09:16] LABS: Reticulocyte Count 1.2 % (0.4-2.8)
[2023-05-25 09:25] LABS: APTT 40.9 Sec (23.4-35.0); Fibrinogen 563 MG/DL (199-459)
[2023-05-25 09:27] LABS: LDH 235 U/L (120-246)
--- NOTE | 2023-05-25 12:27 | CON.ID ---
Consultation
-
Date/Time Consultation Requested: 05/24/23 22:11
Date/Time Consultation Performed: 05/25/23 12:28
Requesting Provider: Dr Calvo
Performing Provider: Dr Tate
Reason for Consultation: bacteremia on chemo, neutropenia hip pain
Chief Complaint / Past History
Chief Complaint
Left hip pain, fever, Gram negative bacilli cultures 1 bottle
History of Present Illness
Mr Sanchez is a 68 year old male with history notable for head and neck cancer dx'd 01/2023 currently on chemotherapy with carboplatin and 5FU and radiation at [facility], last dose of chemotherapy was 05/13 (just under two weeks ago), via CVC in
the R chest wall he was seen in the ER on 05/22 for fever to 102.0 at the time he complained of mild sore throat (thought to be due to radiation), mild nausea and headache. Denied: vomiting, abdominal pain, diarrhea. He had recently been diagnosed
with gout and had jsut completed a 5 day course of prednisone 50 mg PO qday. He was not given antibiotics. In reevaluation patient now also reporting L hip pain with radiation to the foot beginning 05/21 (wednesday) the day before the fever. Of
note his left hip was replaced. Blood cultures from 05/22 later became positive with GNR and patient was called and instructed to represent for further evaluation and management.
Since arrival this visit Tmax 100.6 however last visit 05/22 he was febrile to 101.7 orally, bp stable, wbc 3.2 last visit on arrival 3.1 and today 2.9, hgb 9.8, plt 63 (chronic thrombocytopenia is noted), a L shift was present on arrival - resolved
today, cr baseline 1.3 on arrival it was 2.3 today 1.6, t bili 1.2, today ast 139, lt 35, alk phos 73, LDH 235, ua negative, 05/22 covid ag neg, 05/23 lower extremity US: no abscess or bursal fluid collection, hip xray: Left hip replacement is present.
No radiographic findings to suggest infection or loosening of the prosthesis. 05/22 GNR in the anaerobic bottle, patient currently on cefepime also had dose of vancomycin, ID is consulted for assistance with management.
Past History
Additional Past Medical History:
head and neck cancer diagnosis January 2023 chemoradiation present and ongoing at [facility]
Chronic pain on opiates
HTN-multidrug regimen
HLD
Additional Past Surgical History:
Bilateral hip replacements (remote)
Umbilical hernia repair
Inguinal hernia repair
Allergy History:
No Known Allergies Allergy (Verified 05/24/23 20:02)
Medications Reviewed: Yes
Social History
Tobacco: Non-Smoker
Alcohol: None
Drug: None
Family History
Family History: Not Pertinent
Review of Systems
Review of Systems
General: Fever and Chills
All systems: All other systems were reviewed and were negative
Vital Signs
Temp Pulse Resp BP Pulse Ox
99.1 F 65 16 109/62 95
05/25/23 11:00 05/25/23 11:00 05/25/23 11:00 05/25/23 11:00 05/25/23 11:00
Physical Exam
Physical Exam
Constitutional: No Acute Distress
Cardiovascular: Regular Rate and S1/S2; Negative Murmur or Rub
Pulmonary: Clear and Symmetric; Negative Wheezes, Rales or Rhonchi
Gastrointestinal: Soft, Non Tender, Non Distended and Normal Bowel Sounds
Extremities: Other (left hip minimal bruising about the size of a silver dollar on the posterior/lateral side, bears weight without difficulty, no tenderness, negative straight leg raise)
Skin: Warm and Dry; Negative Rash or Jaundice
Neurological: Awake
Lines: Other (CVC - no erythema, warmth, tenderness or drainage)
Lab / Diagnostic Study Results
05/25/23 05:48
05/25/23 05:48
Abs Immat Gran (auto) 0.0 10^3/uL (0-0.05) 05/25/23 05:48
Absolute Neuts (auto) 2.1 10^3/uL (1.4-6.5) 05/25/23 05:48
Absolute Lymphs (auto) 0.4 10^3/uL (1.2-3.4) L 05/25/23 05:48
Absolute Monos (auto) 0.4 10^3/uL (0.1-0.6) 05/25/23 05:48
Absolute Basos (auto) 0.0 10^3/uL (0-0.2) 05/25/23 05:48
Immature Gran % 0.4 % (0-0.5) 05/25/23 05:48
Neutrophils % 74.0 % (42.2-75.2) 05/25/23 05:48
Lymphocytes % 12.6 % (20.5-51.1) L 05/25/23 05:48
Monocytes % 13.0 % (1.7-9.3) H 05/25/23 05:48
Eosinophils % 0.0 % (0-6) 05/25/23 05:48
Basophils % 0.0 % (0-2) 05/25/23 05:48
Lactic Acid 0.6 mmol/L (0.7-2.0) L 05/24/23 21:25
Microbiology Results
Micro:
05/24/23 23:07 Blood Culture - Pending
Blood/Venous
05/24/23 22:22 Urine Culture - Pending
Urine
05/24/23 22:18 Blood Culture - Pending
Blood/Venous
05/24/23 21:25 Blood Culture - Pending
Blood/Venous
Assessment / Plan
GNR bacteremia - possibly anaerobic
Recent high dose steroid use for gout
Leukopenia without neutropenia
- not neutropenic thus far however it is associated with both of his chemotherapeutics
- CVC without evidence of infection at this time
- repeat blood cultures are in progress x3
- hip US without focal collection or bursitis, there is small amount of bruising likely due to thrombocytopenia; xray also nonfocal
- as pathogen may be anaerobic -switched to zosyn, stop cefepime
- follow clinically
PABLO - resolving
- follow
Isolated Elevated AST
- trending
--- NOTE | 2023-05-25 12:50 | W.PN.HOSP.TC ---
Today's Communication/Plan
-
Continue IV cefepime
ID consult
Await cultures
IV fluids
PT/OT
Assessment / Plan
Assessment / Plan
Gen-AAOx3, NAD
HEENT-NC, AT, anicteric, clear oral mm
Neck-supple
CV-reg, no M, +S1/S2
Lungs-clear B/L
Abd-soft, NT, ND
Ext-no edema
Musculoskeletal-no cyanosis, clubbing, mild tenderness to left greater trochanter
Skin-warm and dry, left lateral hip mild bruising
Neuro-grossly non-focal
Psych-calm, cooperative
Gram-negative bacteremia -source unclear. Gram-negative bacilli noted on blood culture. Repeat culture negative so far. Continue IV cefepime. ID consulted. No obvious localizing signs or symptoms. Hemodynamically stable.
Left hip soft tissue ultrasound negative for fluid collection or abscess. X-ray of the left hip negative for hardware loosening.
Chemotherapy-induced pancytopenia -counts stable. ANC 2100.
Head and neck cancer -on chemo, radiation at [facility]. Last chemotherapy was 05/13.
Acute kidney injury -improving. Creatinine 1.6 today. Hold lisinopril. Check bladder scan.
Hyponatremia -improving. Will check labs. Fluid restriction.
Hyperlipidemia -on rosuvastatin.
Bilateral hip prostheses
Full code
Anticipated Discharge: > 48 hours
Subjective/Interval History
-
Date of Service: May 25, 2023
Patient seen and examined. Complaining of arthralgias. Left lateral hip pain.
Objective Data
-
Labs:
Laboratory Results
05/25/23 05/25/23
05:48 09:06
WBC 2.9 L
Hgb 9.8 L
Hct 28.7 L
Plt Count 63 L
APTT 40.9 H
Sodium 130 L
Potassium 4.5
Chloride 104
Carbon Dioxide 24
BUN 24 H
Creatinine 1.6 H
Glucose 96
Calcium 8.1 L
Total Bilirubin 1.2
AST 139 H
ALT 35
Alkaline Phosphatase 73
Vital Signs:
Vital Signs
Temp Pulse Resp BP Pulse Ox
99.1 F 65 16 109/62 95
05/25/23 11:00 05/25/23 11:00 05/25/23 11:00 05/25/23 11:00 05/25/23 11:00
Review of Systems
-
History Source: Patient
All other systems: Reviewed and negative
[2023-05-25] MEDS: MAXIPIME 2000 MG IV (12:53)
[2023-05-25] MEDS: STERILE WATER FOR INJECTION 10 ML IV (12:53)
[2023-05-25 13:02] LABS: TSH 1.68 uIU/ml (0.47-4.68)
[2023-05-25 13:38] LABS: Vitamin B12 503 pg/ml (239-931)
[2023-05-25] MEDS: NSS 1000 IV (14:46)
[2023-05-25] MEDS: ZOSYN 50 IV ×2 (16:12→21:34)
[2023-05-25] MEDS: CRESTOR 20 MG PO (17:50)
[2023-05-25 17:53] LABS: Osmolality Urine 495 mOsm/kg (300-900)
[2023-05-25 18:03] LABS: Urine Sodium 130 mmol/L (30-90)
--- NOTE | 2023-05-25 18:08 | PTCARENOTE ---
Temp 102.6, 650mg PO Tylenol given, pt resting comfortably, 1 hr recheck 101.2, will continue to monitor.
[2023-05-26 03:15] VITALS: BP 118/73
[2023-05-26] MEDS: ZOSYN 50 IV ×4 (03:43→21:59)
[2023-05-26] MEDS: NSS 1000 IV (03:43)
[2023-05-26] MEDS: ROXICODONE 10 MG PO ×4 (06:00→23:58)
[2023-05-26 06:20] LABS: % Immature Granulocytes 0.5 % (0-0.5); % Lymphocytes 12.4 % (20.5-51.1); % Monocytes 17.6 % (1.7-9.3); % Neutrophils 69.5 % (42.2-75.2); Absolute Lymphocytes 0.2 10^3/uL (1.2-3.4); Absolute Monocytes 0.3 10^3/uL (0.1-0.6); Absolute Neutrophils 1.3 10^3/uL (1.4-6.5); Hematocrit 25.3 % (39.0-52.0); Hemoglobin 8.8 g/dL (13.0-18.0); Mean Corp Hgb Conc. 34.8 g/dL (33.0-37.0); Mean Corpuscular Hgb 32.6 pg (27.0-31.0); Mean Corpuscular Volume 93.7 fL (80.0-94.0); Mean Platelet Volume 9.2 fL (7.4-10.4); Nucleated Red Blood Cells % 0 % (-); Platelet Count 56 10^3/uL (130-400); Red Cell Dist. Width 13.4 % (11.5-14.5)
[2023-05-26 06:23] LABS: White Blood Cell Count 1.9 10^3/uL (4.8-10.8)
[2023-05-26 06:41] LABS: ALT (SGPT) 69 U/L (0-50); AST (SGOT) 254 U/L (17-59); Albumin 2.7 g/dl (3.5-5.0); Alkaline Phosphatase 129 U/L (38-126); Blood Urea Nitrogen 17 mg/dl (9-20); Calcium 8.2 mg/dl (8.4-10.2); Carbon Dioxide 24 mmol/L (22-30); Chloride 100 mmol/L (98-107); Estimated Creatinine Clearance 52 ml/min; Glucose 93 mg/dl (70-99); Potassium 4.2 mmol/L (3.5-5.1); Sodium 129 mmol/L (135-145); Total Bilirubin 1.3 mg/dl (0.2-1.3); Total Protein 5.2 g/dl (6.3-8.2)
[2023-05-26 07:15] VITALS: BP 119/73
[2023-05-26 07:29] LABS: Hepatitis C Antibody Negative (Negative)
[2023-05-26] MEDS: TYLENOL 650 MG PO ×2 (08:01→18:01)
[2023-05-26] MEDS: VITAMIN D3 (cholecalciferol) 50 MCG PO (08:01)
[2023-05-26] MEDS: ASPIR LOW (ENTERIC COATED) 81 MG PO (08:01)
--- NOTE | 2023-05-26 09:04 | W.PN.HOSP.TC ---
Today's Communication/Plan
-
Continue antibiotics
Await cultures
Fluid restriction
Assessment / Plan
Assessment / Plan
Gen-AAOx3, NAD
HEENT-NC, AT, anicteric, clear oral mm
Neck-supple
CV-reg, no M, +S1/S2
Lungs-clear B/L
Abd-soft, NT, ND
Ext-no edema
Musculoskeletal-no cyanosis, clubbing, mild tenderness to left greater trochanter
Skin-warm and dry, left lateral hip mild bruising
Neuro-grossly non-focal
Psych-calm, cooperative
Gram-negative bacteremia -source unclear. Still with intermittent fevers. ANC 1300 today. Gram-negative bacilli noted on blood culture. Repeat culture negative so far. Continue antibiotics per ID. No obvious localizing signs or symptoms.
Hemodynamically stable.
Left hip soft tissue ultrasound negative for fluid collection or abscess. X-ray of the left hip negative for hardware loosening.
Chemotherapy-induced pancytopenia -counts stable.
Head and neck cancer -on chemo, radiation at [facility]. Last chemotherapy was 05/13.
Acute kidney injury -improving. Creatinine 1.5 today. Hold lisinopril. Check bladder scan.
Hyponatremia -sodium 129 today. Fluid restrict. Urine studies consistent with ADH excess.
Hyperlipidemia -on rosuvastatin.
Bilateral hip prostheses
Full code
Anticipated Discharge: > 48 hours
Subjective/Interval History
-
Date of Service: May 26, 2023
Patient seen and examined. No new complaints.
Objective Data
-
Labs:
Laboratory Results
05/26/23
06:01
WBC 1.9 L*
Hgb 8.8 L
Hct 25.3 L
Plt Count 56 L
Sodium 129 L
Potassium 4.2
Chloride 100
Carbon Dioxide 24
BUN 17
Creatinine 1.5 H
Glucose 93
Calcium 8.2 L
Total Bilirubin 1.3
AST 254 H
ALT 69 H
Alkaline Phosphatase 129 H
Vital Signs:
Vital Signs
Temp Pulse Resp BP Pulse Ox
100.9 F H 69 17 119/73 92
05/26/23 07:15 05/26/23 07:15 05/26/23 07:15 05/26/23 07:15 05/26/23 07:15
I&O
05/25/23 05/26/23 05/27/23
06:59 06:59 06:59
Intake Total 2079
Balance 2079
Review of Systems
-
History Source: Patient
All other systems: Reviewed and negative
[2023-05-26 11:31] VITALS: BP 105/55
--- NOTE | 2023-05-26 11:32 | CM ---
CM following re: discharge planning.
Reviewed pt's chart, met with pt.
Pt is a 68 year old male, admitted with primary dx of Gram-negative bacteremia
Pt reports he lives with spouse in a 2SH, 2 steps to enter, has 5 supportive children. Pt described himself as independent in al areas [employer], drives, works. Pt reports he is getting outpatient chemotherapy and radiation treatment through [facility].
PCP: Seamus Gtz
Pharmacy: [facility].
D/C plan: home with resumptions of chemotherapy and radiation treatment. Spouse to transport at discharge.
CM will follow with discharge plan updates as hospitalization progresses
[2023-05-26 12:51] VITALS: BMI 28.9
--- NOTE | 2023-05-26 13:16 | W.PN.ID1 ---
Date of Service
Date of Service: May 26, 2023
Today's Communication
discussed with patients rad oncologist Dr Miles at [facility], if patient can be discharged by wednesday (which I believe is likely) then no transfer needed, if we anticipated the hospitalization going beyond that then he would have requested a transfer to their
center. Reviewed this with patient and . From my perspective I suspect he will be ready for discharge before that time. It will be easier to make predictions as we continue to gather more data
Assessment / Plan
Neutropenic Fever
GNR bacteremia - possibly anaerobic
Recent high dose steroid use for gout
- CVC (not port) without evidence of infection at this time
- repeat blood cultures are in progress x3, no growth to date
- hip US without focal collection or bursitis, there is small amount of bruising likely due to thrombocytopenia; xray also nonfocal. Much improved hip pain and gait today.
- pathogen may be anaerobe - suggests translocation - has been sent out to reference lab for ID; continue zosyn
- asked oncology to comment if theres a role for gcsf
- follow clinically
PABLO - resolving
- follow
Isolated Elevated AST
- trending
Chief Complaint
-: Fever
Subjective / Review of Systems
fever curve may be improving over the last 12 hours
bp stable
wbc now 1.9, anc 1.3
hgb 8.8
plt 56
cr further improved
discussed with patients rad oncologist Dr Miles at [facility], if patient can be discharged by wednesday (which I believe is likely) then no transfer needed, if we anticipated the hospitalization going beyond that then he would have requested a transfer to their
center. Reviewed this with patient and
Vital Signs / Physical Exam
Vital Signs
Vital Signs
Temp Pulse Resp BP Pulse Ox
98.4 F 72 17 105/55 97
05/26/23 11:31 05/26/23 11:31 05/26/23 11:31 05/26/23 11:31 05/26/23 11:31
Physical Exam
Constitutional: No Acute Distress
Cardiovascular: Regular Rate and S1/S2; Negative Murmur or Rub
Pulmonary: Clear and Symmetric; Negative Wheezes or Rales
Gastrointestinal: Soft, Non Tender, Non Distended and Normal Bowel Sounds
Skin: Warm and Dry; Negative Rash or Jaundice
Objective Data
Lab Data
Lab Results
05/26/23 06:01
05/26/23 06:01
APTT 40.9 Sec (23.4-35.0) H 05/25/23 09:06
Estimated Creat Clear 52 ml/min 05/26/23 06:01
Lactic Acid 0.6 mmol/L (0.7-2.0) L 05/24/23 21:25
Total Bilirubin 1.3 mg/dl (0.2-1.3) 05/26/23 06:01
AST 254 U/L (17-59) H 05/26/23 06:01
ALT 69 U/L (0-50) H 05/26/23 06:01
Alkaline Phosphatase 129 U/L (38-126) H 05/26/23 06:01
Most recent labs reviewed.
Micro Results:
05/24/23 22:22 Urine Culture - Final
Urine NO GROWTH
05/24/23 23:07 Blood Culture - Preliminary
Blood/Venous No Growth in 24 hours- Final report to follow
05/24/23 22:18 Blood Culture - Preliminary
Blood/Venous No Growth in 24 hours- Final report to follow
05/24/23 21:25 Blood Culture - Preliminary
Blood/Venous No Growth in 24 hours- Final report to follow
[2023-05-26 15:10] VITALS: BP 134/76
[2023-05-26] MEDS: CRESTOR 20 MG PO (17:49)
[2023-05-26 19:41] VITALS: BP 109/65
[2023-05-26 20:48] LABS: Haptoglobin 353 mg/dL (30-200)
[2023-05-26] MEDS: SENOKOT 25.8000000000000007 MG PO (21:57)
[2023-05-26] MEDS: COLACE 200 MG PO (21:57)
[2023-05-26 23:11] VITALS: BP 136/76
[2023-05-27 00:34] LABS: Free Kappa Light Chains,Quant 23.26 mg/L (3.30-19.40); Free Lambda Light Chains,Quant 22.88 mg/L (5.71-26.30); Kappa/Lambda Fr Light Ratio 1.02 (0.26-1.65)
[2023-05-27 03:16] VITALS: BP 134/75
[2023-05-27] MEDS: ZOSYN 50 IV ×4 (04:00→21:34)
[2023-05-27] MEDS: ROXICODONE 10 MG PO ×4 (05:48→23:01)
[2023-05-27 06:10] LABS: % Basophils 0.5 % (0-2); % Immature Granulocytes 0.5 % (0-0.5); % Lymphocytes 13.4 % (20.5-51.1); % Monocytes 14.3 % (1.7-9.3); % Neutrophils 71.3 % (42.2-75.2); Absolute Lymphocytes 0.3 10^3/uL (1.2-3.4); Absolute Monocytes 0.3 10^3/uL (0.1-0.6); Absolute Neutrophils 1.6 10^3/uL (1.4-6.5); Hematocrit 25.1 % (39.0-52.0); Mean Corp Hgb Conc. 35.9 g/dL (33.0-37.0); Mean Corpuscular Hgb 32.8 pg (27.0-31.0); Mean Corpuscular Volume 91.6 fL (80.0-94.0); Mean Platelet Volume 8.8 fL (7.4-10.4); Nucleated Red Blood Cells % 0 % (-); Platelet Count 57 10^3/uL (130-400); Red Blood Cell Count 2.74 10^6/uL (4.70-6.10); Red Cell Dist. Width 13.5 % (11.5-14.5)
[2023-05-27 06:19] LABS: White Blood Cell Count 2.2 10^3/uL (4.8-10.8)
[2023-05-27 06:55] LABS: ALT (SGPT) 52 U/L (0-50); AST (SGOT) 128 U/L (17-59); Albumin 2.8 g/dl (3.5-5.0); Alkaline Phosphatase 171 U/L (38-126); Blood Urea Nitrogen 16 mg/dl (9-20); Calcium 8.5 mg/dl (8.4-10.2); Carbon Dioxide 26 mmol/L (22-30); Chloride 98 mmol/L (98-107); Estimated Creatinine Clearance 52 ml/min; Glucose 91 mg/dl (70-99); Potassium 4.4 mmol/L (3.5-5.1); Sodium 130 mmol/L (135-145); Total Bilirubin 1.1 mg/dl (0.2-1.3); Total Protein 5.4 g/dl (6.3-8.2)
[2023-05-27 07:28] VITALS: BP 139/89
[2023-05-27] MEDS: VITAMIN D3 (cholecalciferol) 50 MCG PO (08:15)
[2023-05-27] MEDS: ASPIR LOW (ENTERIC COATED) 81 MG PO (08:15)
--- NOTE | 2023-05-27 10:36 | PN.CDI ---
CDI
- -
CDI:
Physician Documentation Request
Admit Date: 05/24/23 21:36
Dear Doctor Kristian,
Clinical Indicators:
Patient admitted with gram negative bacteremia.
PMH includes head and neck cancer, currently undergoing chemo/radiation.
4/3 PN, 'Hyponatremia...Urine studies consistent with ADH excess.'
Sodium levels:
05/24/23 05/25/23 05/26/23
21:25 05:48 06:01
Sodium 126 L 130 L 129 L
Urine Studies:
05/25/23
17:26
Urine Osmolality 495
Urine Sodium 130 H
Based on the above, could you clarify in the progress notes, the likely diagnosis, that supports the above lab abnormalities and additional evaluation, monitoring and/or treatment rendered:
SIADH
Hyponatremia only
Other, please specify
Use of terms such as suspected, likely, concern for, or probable (associated with a specific diagnosis that is being evaluated, monitored, or treated as if it exists) are acceptable and can be coded in the inpatient setting, when documented at the
time of discharge.
Thank you,
MARQUES Pandya RN
CDI Specialist
available via tiger text
Please use your independent medical judgment in providing your response.
[2023-05-27 10:59] VITALS: BP 128/75
--- NOTE | 2023-05-27 13:33 | W.PN.HOSP.TC ---
Addendum entered and electronically signed by Rupesh Townsend DO 05/27/23 15:08:
SIADH
Original Note:
Today's Communication/Plan
-
ESR, CRP
X-ray
Ultrasound
Assessment / Plan
Assessment / Plan
Gen-AAOx3, NAD
HEENT-NC, AT, anicteric, clear oral mm
Neck-supple
CV-reg, no M, +S1/S2
Lungs-clear B/L
Abd-soft, NT, ND
Ext-no edema
Musculoskeletal-no cyanosis, clubbing, mild tenderness to left greater trochanter. Tender and edematous left ankle and left forefoot, range of motion mildly reduced due to pain.
Skin-warm and dry, left lateral hip mild bruising
Neuro-grossly non-focal
Psych-calm, cooperative
Gram-negative bacteremia -source unclear. Still with intermittent fevers. ANC 1600 today. Gram-negative bacilli noted on blood culture. Repeat culture negative so far. Continue antibiotics per ID. No obvious localizing signs or symptoms.
Hemodynamically stable.
Left hip soft tissue ultrasound negative for fluid collection or abscess. X-ray of the left hip negative for hardware loosening.
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 Pain and swelling involve the left forefoot as well. Ankle range of motion somewhat limited but not to the degree that I would be
concerned about crystal arthropathy or septic arthritis. Will check ESR, CRP, x-ray and ultrasound of ankle. He had similar presentation of right ankle pain and was evaluated in the emergency room on 05/15, treated as presumed gout flare with
prednisone and discharged. Arthrocentesis not done. A week prior to that on May 09 he had similar pain in the right ankle and again was treated with prednisone for 3 days with improvement.
Chemotherapy-induced pancytopenia -counts stable.
Head and neck cancer -on chemo, radiation at [facility]. Last chemotherapy was 3/22.
Acute kidney injury -improving. Creatinine 1.5 today. Hold lisinopril. Etiology of PABLO possibly due to carboplatinum.
Hyponatremia -sodium 130 today. Fluid restrict. Urine studies consistent with ADH excess.
Hyperlipidemia -on rosuvastatin.
Bilateral hip prostheses
Full code
Anticipated Discharge: > 48 hours
Subjective/Interval History
-
Date of Service: May 27, 2023
Patient seen and examined. Complaining of left ankle and foot pain and swelling. Left hip is feeling better.
Objective Data
-
Labs:
Laboratory Results
05/27/23
05:55
WBC 2.2 L*
Hgb 9.0 L
Hct 25.1 L
Plt Count 57 L
Sodium 130 L
Potassium 4.4
Chloride 98
Carbon Dioxide 26
BUN 16
Creatinine 1.5 H
Glucose 91
Calcium 8.5
Total Bilirubin 1.1
AST 128 H
ALT 52 H
Alkaline Phosphatase 171 H
Vital Signs:
Vital Signs
Temp Pulse Resp BP Pulse Ox
98.7 F 75 16 128/75 96
05/27/23 10:59 05/27/23 10:59 05/27/23 10:59 05/27/23 10:59 05/27/23 10:59
I&O
05/26/23 05/27/23 05/28/23
06:59 06:59 06:59
Intake Total 2079 1000 / 1000
Balance 2079 1000 999
Review of Systems
-
History Source: Patient
All other systems: Reviewed and negative
[2023-05-27 14:18] LABS: Erythrocyte Sed Rate 115 mm/hour (0-20)
--- NOTE | 2023-05-27 14:54 | CM ---
Continues with intermittent fevers, IV/AB. Discharge Plan of Care: Home with no needs and resumption of chemo and radiation treatments as outpatient.
[2023-05-27 15:15] VITALS: BP 121/81
--- NOTE | 2023-05-27 15:19 | W.PN.ID1 ---
Date of Service
Date of Service: May 27, 2023
Today's Communication
continue zosyn
Assessment / Plan
Neutropenic Fever
GNR bacteremia - possibly anaerobic
Recent high dose steroid use for gout
- CVC (not port) without evidence of infection at this time
- repeat blood cultures are in progress x3, no growth to date
- hip US without focal collection or bursitis, there is small amount of bruising likely due to thrombocytopenia; xray also nonfocal. Much improved hip pain and gait today.
- pathogen may be anaerobe - suggests translocation - has been sent out to reference lab for ID; continue zosyn
- asked oncology to comment if theres a role for gcsf
- follow clinically
PABLO - resolving
- follow
Isolated Elevated AST
- trending
Chief Complaint
-: Fever
Subjective / Review of Systems
afebrile about 20 hours
bp stable
wbc increasing, no longer neutropenic
now with pain in the L foot (previously L ankle and right hip)
repeat cultures no growth to date
Vital Signs / Physical Exam
Vital Signs
Vital Signs
Temp Pulse Resp BP Pulse Ox
98.7 F 75 16 128/75 96
05/27/23 10:59 05/27/23 10:59 05/27/23 10:59 05/27/23 10:59 05/27/23 10:59
Physical Exam
Constitutional: No Acute Distress
Cardiovascular: Regular Rate and S1/S2; Negative Murmur or Rub
Pulmonary: Clear and Symmetric; Negative Wheezes or Rales
Gastrointestinal: Soft, Non Tender, Non Distended and Normal Bowel Sounds
Musculoskeletal: Other (minimal swelling/tenderness in the L ankle)
Skin: Warm and Dry; Negative Rash or Jaundice
Objective Data
Lab Data
Lab Results
05/27/23 05:55
05/27/23 05:55
ESR Cancelled 05/27/23 13:34
APTT 40.9 Sec (23.4-35.0) H 05/25/23 09:06
Estimated Creat Clear 52 ml/min 05/27/23 05:55
Lactic Acid 0.6 mmol/L (0.7-2.0) L 05/24/23 21:25
Total Bilirubin 1.1 mg/dl (0.2-1.3) 05/27/23 05:55
AST 128 U/L (17-59) H 05/27/23 05:55
ALT 52 U/L (0-50) H 05/27/23 05:55
Alkaline Phosphatase 171 U/L (38-126) H 05/27/23 05:55
Most recent labs reviewed.
Micro Results:
05/24/23 23:07 Blood Culture - Preliminary
Blood/Venous No Growth in 48 hours- Final report to follow
05/24/23 22:18 Blood Culture - Preliminary
Blood/Venous No Growth in 48 hours- Final report to follow
05/24/23 21:25 Blood Culture - Preliminary
Blood/Venous No Growth in 48 hours- Final report to follow
05/24/23 22:22 Urine Culture - Final
Urine NO GROWTH
Care Review
Plan reviewed with: Physician (Dr Townsend - )
[2023-05-27 16:18] VITALS: BP 138/91; BP_SYST 79
[2023-05-27 17:34] LABS: C-Reactive Protein > 270.00 mg/L (0.0-10.00)
[2023-05-27] MEDS: CRESTOR 20 MG PO (17:53)
[2023-05-27] MEDS: COLACE 200 MG PO (21:33)
[2023-05-27] MEDS: SENOKOT 25.8000000000000007 MG PO (21:33)
[2023-05-27] MEDS: TYLENOL 650 MG PO (23:01)
[2023-05-27 23:10] VITALS: BP 131/83
[2023-05-28] MEDS: ZOSYN 50 IV ×2 (03:40→10:12)
[2023-05-28 05:23] LABS: % Immature Granulocytes 0.4 % (0-0.5); % Lymphocytes 12.4 % (20.5-51.1); % Monocytes 13.3 % (1.7-9.3); % Neutrophils 73.9 % (42.2-75.2); Absolute Lymphocytes 0.3 10^3/uL (1.2-3.4); Absolute Monocytes 0.3 10^3/uL (0.1-0.6); Absolute Neutrophils 1.8 10^3/uL (1.4-6.5); Hematocrit 24.3 % (39.0-52.0); Hemoglobin 8.7 g/dL (13.0-18.0); Mean Corp Hgb Conc. 35.8 g/dL (33.0-37.0); Mean Platelet Volume 8.9 fL (7.4-10.4); Nucleated Red Blood Cells % 0 % (-); Platelet Count 52 10^3/uL (130-400); Red Blood Cell Count 2.64 10^6/uL (4.70-6.10); Red Cell Dist. Width 13.4 % (11.5-14.5); White Blood Cell Count 2.5 10^3/uL (4.8-10.8)
[2023-05-28] MEDS: ROXICODONE 10 MG PO ×2 (05:42→11:43)
[2023-05-28 05:59] LABS: ALT (SGPT) 33 U/L (0-50); AST (SGOT) 50 U/L (17-59); Albumin 2.8 g/dl (3.5-5.0); Alkaline Phosphatase 161 U/L (38-126); Blood Urea Nitrogen 17 mg/dl (9-20); Calcium 8.7 mg/dl (8.4-10.2); Carbon Dioxide 27 mmol/L (22-30); Chloride 96 mmol/L (98-107); Estimated Creatinine Clearance 49 ml/min; Glucose 100 mg/dl (70-99); Potassium 4.1 mmol/L (3.5-5.1); Sodium 131 mmol/L (135-145); Total Bilirubin 1.1 mg/dl (0.2-1.3); Total Protein 5.4 g/dl (6.3-8.2); eGFR 46.64
[2023-05-28 08:00] VITALS: BP 151/91
--- NOTE | 2023-05-28 08:18 | W.PN.HOSP.TC ---
Today's Communication/Plan
-
Discharge
Assessment / Plan
Assessment / Plan
Gen-AAOx3, NAD
HEENT-NC, AT, anicteric, clear oral mm
Neck-supple
CV-reg, no M, +S1/S2
Lungs-clear B/L
Abd-soft, NT, ND
Ext-no edema
Musculoskeletal-no cyanosis, clubbing, mild tenderness to left greater trochanter. Tender and edematous left ankle and left forefoot, range of motion mildly reduced due to pain.
Skin-warm and dry, left lateral hip mild bruising
Neuro-grossly non-focal
Psych-calm, cooperative
Gram-negative bacteremia -source unclear. Still with intermittent fevers. ANC 1800 today. Gram-negative bacilli noted on blood culture. Repeat culture negative so far. Continue antibiotics per ID. No obvious localizing signs or symptoms.
Hemodynamically stable.
Left hip soft tissue ultrasound negative for fluid collection or abscess. X-ray of the left hip negative for hardware loosening.
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 Pain and swelling involve the left forefoot as well. Ankle range of motion somewhat limited but not to the degree that I would be
concerned about crystal arthropathy or septic arthritis. Will check ESR, CRP, x-ray and ultrasound of ankle. He had similar presentation of right ankle pain and was evaluated in the emergency room on 05/15, treated as presumed gout flare with
prednisone and discharged. Arthrocentesis not done. A week prior to that on May 09 he had similar pain in the right ankle and again was treated with prednisone for 3 days with improvement.
IR attempted left ankle arthrocentesis yesterday but could only remove minimal amount of fluid. Too little fluid for analysis.
I spoke with rheumatology on-call, Dr. Syeda Clayton. We agreed to start empiric colchicine and prednisone and have him follow-up with rheumatology in the office next week.
I also spoke with the patient's oncologist Dr. Valerio at [facility] and he agrees with starting steroids. Discussed with patient and .
Chemotherapy-induced pancytopenia -counts stable.
Head and neck cancer -on chemo, radiation at [facility]. Last chemotherapy was 05/13.
Acute kidney injury -creatinine now stable, 1.6 today. Hold lisinopril. Etiology of PABLO possibly due to carboplatinum.
Hyponatremia -sodium 131 today. Fluid restrict. Urine studies consistent with ADH excess.
Hyperlipidemia -on rosuvastatin.
Bilateral hip prostheses
Full code
Dispo -can discharge home today. Patient eager to go home so he can start chemotherapy next week. Infectious disease to decide on discharge antibiotics.
40 minutes spent in discharge process including coordination of care.
Anticipated Discharge: Today
Subjective/Interval History
-
Date of Service: May 28, 2023
Patient seen and examined. Still with ongoing left ankle pain and swelling. However, able to ambulate.
Objective Data
-
Labs:
Laboratory Results
05/28/23
05:07
WBC 2.5 L
Hgb 8.7 L
Hct 24.3 L
Plt Count 52 L
Sodium 131 L
Potassium 4.1
Chloride 96 L
Carbon Dioxide 27
BUN 17
Creatinine 1.6 H
Glucose 100 H
Calcium 8.7
Total Bilirubin 1.1
AST 50
ALT 33
Alkaline Phosphatase 161 H
Vital Signs:
Vital Signs
Temp Pulse Resp BP Pulse Ox
98.6 F 82 20 131/83 96
05/28/23 00:43 05/27/23 23:10 05/27/23 23:10 05/27/23 23:10 05/27/23 23:10
I&O
05/27/23 05/28/23 05/29/23
06:59 06:59 06:59
Intake Total 1000 / 1000 1620 / 1620
Balance 1000 / 1000 1620 / 1620
Review of Systems
-
History Source: Patient
All other systems: Reviewed and negative
[2023-05-28] MEDS: ASPIR LOW (ENTERIC COATED) 81 MG PO (08:19)
[2023-05-28] MEDS: VITAMIN D3 (cholecalciferol) 50 MCG PO (08:19)
[2023-05-28] MEDS: DURAGESIC 12 MCG/HR PATCH 1 PATCH TRANSDERM (08:19)
[2023-05-28] MEDS: TYLENOL 650 MG PO (08:19)
--- NOTE | 2023-05-28 08:47 | W.DS.TRANS ---
DC Summary - Action Finisher
-
Discharge Instructions:
Discharge Diagnosis/Procedures Bacteremia, migratory arthritis, pancytopenia,
acute kidney injury, hyponatremia
Diet Restrict fluids to 48 oz,Regular
Activity As tolerated
Driving Restrictions No driving
Bathing Restrictions None
Blood Work BMP, CBC in 1 week
Instructions:
Stand-Alone Forms:
Changes to Home Medications: No
Discharge Medications:
DC Medications w/original date entered in [facility]
amlodipine 5 mg tablet 5 mg PO DAILY Blood Pressure 05/16/23
atenolol 50 mg tablet 50 mg PO DAILY Blood Pressure 05/16/23
cholecalciferol (vitamin D3) 50 mcg (2,000 unit) tablet (Vitamin D3) 50 mcg PO DAILY Supplement 05/16/23
docusate sodium 100 mg capsule (Colace) 200 mg PO HS Constipation 05/16/23
fentanyl 12 mcg/hr transdermal patch 1 patch transdermal Q72H Pain 05/16/23
rosuvastatin 20 mg tablet 20 mg PO QPM High Cholesterol 05/16/23
sennosides 8.6 mg tablet (senna) 25.8 mg PO HS Constipation 05/16/23
aspirin 81 mg tablet,delayed release 81 mg PO DAILY Blood Clot Prevention/Tx 05/24/23
oxycodone 5 mg tablet 10 mg PO Q6H Pain 05/24/23
amoxicillin 875 mg-potassium clavulanate 125 mg tablet 1 tab PO BID #28 tabs 05/28/23
colchicine 0.6 mg tablet 0.6 mg PO DAILY #30 tabs 05/28/23
prednisone 10 mg tablet 10 mg PO DIRECTED #27 tabs 05/28/23
Home Medication Changes
Pending Results: No
[2023-05-28] MEDS: DELTASONE 30 MG PO (10:11)
[2023-05-28] MEDS: COLCHICINE 0.599999999999999978 MG PO (10:11)
--- NOTE | 2023-05-28 10:29 | W.PN.ID1 ---
Date of Service
Date of Service: May 28, 2023
Today's Communication
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
- switch to augmentin x14 days total
- follow up with oncology
Assessment / Plan
Neutropenic Fever
GNR bacteremia - possibly anaerobic
Recent high dose steroid use for gout
- CVC remains without evidence of infection at this time
- repeat blood cultures are in progress x3, no growth to date
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
- very unlikely septic joint, most likely gout
- switch to augmentin x14 days total
- follow up with oncology
PABLO - stable
- follow up with PCP
Chief Complaint
-: Fever
Subjective / Review of Systems
fevers relapsing in the context of suspect gout flare - reports he was unaware/asympomatic which is an improvement
leukopenia improving
cr stable
L foot notably a bit more swollen today
tolerating current therapies
Vital Signs / Physical Exam
Vital Signs
Vital Signs
Temp Pulse Resp BP Pulse Ox
100.9 F H 97 18 151/91 96
05/28/23 08:00 05/28/23 08:00 05/28/23 08:00 05/28/23 08:00 05/28/23 08:00
Physical Exam
Constitutional: No Acute Distress
Cardiovascular: Regular Rate and S1/S2; Negative Murmur or Rub
Pulmonary: Clear and Symmetric; Negative Wheezes or Rales
Gastrointestinal: Soft, Non Tender, Non Distended and Normal Bowel Sounds
Extremities: Other (foot with minimal swelling, warmth, erythema - consistent with gout)
Skin: Warm and Dry; Negative Rash or Jaundice
Lines: Other (CVC no tenderness or drainage)
Objective Data
Lab Data
Lab Results
05/28/23 05:07
05/28/23 05:07
ESR Cancelled 05/27/23 13:34
APTT 40.9 Sec (23.4-35.0) H 05/25/23 09:06
Estimated Creat Clear 49 ml/min 05/28/23 05:07
Lactic Acid 0.6 mmol/L (0.7-2.0) L 05/24/23 21:25
Total Bilirubin 1.1 mg/dl (0.2-1.3) 05/28/23 05:07
AST 50 U/L (17-59) 05/28/23 05:07
ALT 33 U/L (0-50) 05/28/23 05:07
Alkaline Phosphatase 161 U/L (38-126) H 05/28/23 05:07
C-Reactive Protein > 270.00 mg/L (0.0-10.00) H 05/27/23 05:55
Most recent labs reviewed.
Micro Results:
05/24/23 23:07 Blood Culture - Preliminary
Blood/Venous No Growth in 72 hours- Final report to follow
05/24/23 22:18 Blood Culture - Preliminary
Blood/Venous No Growth in 72 hours- Final report to follow
05/24/23 21:25 Blood Culture - Preliminary
Blood/Venous No Growth in 72 hours- Final report to follow
05/27/23 17:20 Body Fluid Culture - Pending
Joint Fluid Gram Stain - Final
05/27/23 17:20 Anaerobic Culture - Pending
Synovial Fluid
05/24/23 22:22 Urine Culture - Final
Urine NO GROWTH
[2023-05-28 11:36] VITALS: BP 133/86
--- NOTE | 2023-05-28 12:17 | CM ---
Patient has been medically cleared for discharge to home with no additional skilled in-home services. Patient will resume chemo and radiation therapy as outpatient. Patient arranged for transport home.
== END 2023-05-28 12:16 | disposition home or self-care (01) | DRG 871 ==
LOC: 2 NORTH 21:36
PROVIDERS: Clinical Nurse Specialist Family Health; Nurse Practitioner Family; Radiology Vascular & Interventional Radiology; ADMITTING PHYSICIAN Internal Medicine; ATTENDING PHYSICIAN Hospitalist; EMERGENCY PHYSICIAN Emergency Medicine; FAMILY PHYSICIAN Internal Medicine; OTHER PHYSICIAN Internal Medicine Hematology & Oncology; OTHER PHYSICIAN Student in an Organized Health Care Education/Training Program
PROC: 0S9G3ZX Drainage of Left Ankle Joint, Percutaneous Approach, Diagnostic (ICD-10-PCS; 2023-05-27)
DX: R78.81 Bacteremia (principal); D61.810 Antineoplastic chemotherapy induced pancytopenia; D84.821 Immunodeficiency due to drugs; E22.2 Syndrome of inappropriate secretion of antidiuretic hormone; N17.9 Acute kidney failure, unspecified; T45.1X5A Adverse effect of antineoplastic and immunosuppressive drugs, initial encounter; C76.0 Malignant neoplasm of head, face and neck; G89.29 Other chronic pain; I10 Essential (primary) hypertension; E78.5 Hyperlipidemia, unspecified; M25.551 Pain in right hip; B96.89 Other specified bacterial agents as the cause of diseases classified elsewhere; M19.90 Unspecified osteoarthritis, unspecified site; M25.572 Pain in left ankle and joints of left foot
CPT/HCPCS: 20605; 73502; 73610; 73630; 76882; 76942; 80053; 80202; 81003; 82607; 82746; 83010; 83521; 83605; 83615; 83935; 84300; 84443; 85025; 85045; 85384; 85652; 85730; 86140; 86803; 87015; 87040; 87070; 87075; 87086; 87205; 97530; 99285

== ENCOUNTER 2024-06-09 08:57 | Emergency (ER) | payer OTHER, SELFPAY ==
[2024-06-09 08:58] VITALS: BP 154/84
--- NOTE | 2024-06-09 09:21 | ED.GENMED ---
History of Present Illness
General
Chief Complaint: Musculo-Skeletal Complaint
Source: patient
Exam Limitations: none
Time Seen by Provider: 06/09/24 09:04
History of Present Illness
History of Present Illness:
69yoM with history of hypertension and hyperlipidemia presenting for evaluation of left ankle pain. Patient states that a spring-loaded gate hit him in the left Achilles tendon about 2 months ago. He had pain initially but this gradually resolved.
He was feeling back to normal and went golfing 3 days ago. He states he stepped wrong and pivoted on the ankle. He felt an immediate sharp pain in the Achilles tendon and heard a popping sound. Patient is able to bear weight with difficulty.
His pain started to radiate into his foot this morning which prompted him to come to the ED. No paresthesias.
Past History
Past History
ED Past Medical History: Cancer
Social History
Tobacco: Non-smoker
Alcohol: None
Drug: None
Personal:
Living: with family
Phy Exam
General Physical Exam
General Presentation: well appearing and no apparent distress
General age: appears stated age
General Skin: warm and dry
General Habitus: normal
General Mental: alert
Musculoskeletal Exam
Musculoskeletal Exam: other (L ankle: +Palpable defect in the Achilles tendon. Ecchymosis noted to the inferior aspect of the ankle. +Regan test. Active ROM intact and patient able to dorsiflex or plantar flex. 2+ DP pulse and sensation intact. )
Skin Exam
Skin Exam: warm/dry
Psychiatric Exam
Psychiatric Exam: normal mood/affect
Course
Orders/Labs/Results
Orders:
Orders
06/09/24 09:20
Crutches-Treatment ONCE
Splints/Slings/Crut- Treatment ONCE
Location: Left
Type of Splint: Short Leg
CR Ankle - Left Min 3 Views Urgent
Comment:
Reason For Exam: injury
CR Foot - Left Min 3 Views Urgent
Comment:
Reason For Exam: injury
Vital Signs
Initial and Last Documented VS:
Initial Vital Signs
Temp Pulse Resp BP Pulse Ox
98.1 F 52 16 154/84 99
06/09/24 08:58 06/09/24 08:58 06/09/24 08:58 06/09/24 08:58 06/09/24 08:58
Last Documented Vital Signs
Temp Pulse Resp BP Pulse Ox
98.1 F 52 16 154/84 99
06/09/24 08:58 06/09/24 08:58 06/09/24 08:58 06/09/24 08:58 06/09/24 08:58
MDM/Problems Addressed
Differential Diagnosis Includes:
69yoM here with L Achilles pain after hearing a pop while playing golf 3 days ago. There is a palpable defect in the Achilles tendon on exam with a positive Regan test. He is able to active dorsiflex and plantar flex the ankle. LLE is
neurovascularly intact. Differential diagnosis includes: partial tendon rupture, complete tendon rupture, Achilles tendonitis, doubt fracture
X-rays of L ankle and foot obtained which are negative for fractures per my interpretation. Clinical presentation consistent with an Achilles tendon rupture, possibly partial as patient is able to actively range ankle. He was placed in a short leg
splint by water supply technician with foot held in plantar flexion. Neurovascular status unchanged after splint placement. Crutches provided and advised NWB. He has an appt scheduled in 3 days with [facility] orthopedics so will have close f/u. He was discharged in
stable condition.
*Critical Care Note
Total Time (30-74mins, 75-104mins- exclusive of procedures): Not Applicable
ED Attending Note
-
Portions of this chart may have been created with voice recognition software.� Occasional wrong word or��sound alike� substitutions may have occurred due to the inherent limitations of voice recognition software.
Discharge Plan
Departure
Patient Disposition: Home (Routine Discharge)
Date of Disposition: 06/09/24
Time of Disposition: 10:13
Patient with high blood pressure during this ER visit?: Yes
Discharge Problem:
Injury of left Achilles tendon
Instructions: Achilles Tendon Rupture (DC)
Prescriptions:
No Action
sennosides [senna] 8.6 mg Tablet
25.8 mg PO HS
amlodipine 5 mg Tablet
5 mg PO DAILY
docusate sodium [Colace] 100 mg Capsule
200 mg PO HS
atenolol 50 mg Tablet
50 mg PO DAILY
rosuvastatin 20 mg Tablet
20 mg PO QPM
fentanyl 12 mcg/hr Patch 72 Hour
1 patch TRANSDERMAL Q72H
Patient Comments:
05/24/2023: last filled 05/05/23, 10 patches for 30 days from [facility]
cholecalciferol (vitamin D3) [Vitamin D3] 50 mcg (2,000 unit) Tablet
50 mcg PO DAILY
aspirin 81 mg Tablet,Delayed Release (Dr/Ec)
81 mg PO DAILY
oxycodone 5 mg tablet
10 mg PO Q6H
Patient Comments:
05/24/2023: last filled 04/30/23, 120 tabs for 30 days from [facility]
colchicine 0.6 mg Tablet
0.6 mg PO DAILY Qty: 30 0RF
prednisone 10 mg tablet
10 mg PO DIRECTED Qty: 27 0RF
Rx Instructions:
3 tabs daily x 4 days, 2 tabs daily x 5 days, 1 tab daily x 5days
amoxicillin-pot clavulanate 875-125 mg tablet
1 tab PO BID Qty: 28 0RF
Referrals:
UNKNOWN - PT DOES,NOT KNOW [Family Provider] -
Activity Restrictions/Additional Instructions:
Keep splint in place and do not get wet. Do not bear weight until cleared by orthopedics. Take Tylenol as needed for pain.
Please follow-up with orthopedics on Wednesday as previously scheduled.
Interventions
Interventions:
*Risk Screen - Suicide Last Done: 06/09/24 09:03
*General Assessment Last Done: 06/09/24 09:03
*Neglect/Abuse Screening Last Done: 06/09/24 09:03
*ED COVID-19 Vaccine History Last Done: 06/09/24 09:03
*Nursing Disposition Last Done: 06/09/24 10:55
ED-Musculoskeletal Assessment Last Done: 06/09/24 09:45
Discharge Date and Time
Discharge Date/Time: 06/09/24 10:56
Print Language: [email or web address]
== END 2024-06-09 10:56 | disposition home or self-care (01) ==
LOC: EMR 08:57
PROVIDERS: EMERGENCY PHYSICIAN Emergency Medicine
DX: S86.002A Unspecified injury of left Achilles tendon, initial encounter (principal); X50.1XXA Overexertion from prolonged static or awkward postures, initial encounter; I10 Essential (primary) hypertension; E78.5 Hyperlipidemia, unspecified
CPT/HCPCS: 99283; 29515; 73610; 73630